=== PATIENT | female | born 1950 | race Caucasian/White ===

== ENCOUNTER 2020-03-16 05:09 | Inpatient (IN) | payer OTHER ==
[~2020-03-16] VITALS: Ht 152.4 cm; Wt 112.5 kg
--- NOTE | 2020-03-16 02:00 | NUR ---
awake, alert, watching tv. stable. no pain. no sob. Addendum: 03/17/20 at 0220 by Tim Caldwell RN wrong time entry, should be 2200
[2020-03-16 05:14] VITALS: BP_SYST 117
--- NOTE | 2020-03-16 05:14 | NUR ---
Placed in room 6 . Placed on equipment monitor phototypesetting, blood pressure machine and pulse oximeter. To gown for exam. Side rails up. Report given to Jesus JONES/Britney JONES.
--- NOTE | 2020-03-16 05:16 | NUR ---
Patient BIB EMS -[facility] C/O generalized weakness x 1 week. Per EMS reported, patient had generalized weakness x ~ 1 week, called 911 from [facility]. A/O,X4, generalized weakness, ascites, bilateral lower leg swelling, pitting edema +2, HR 70, RR 22, BP 119/76, Oxygen sat 98 %RA.
--- NOTE | 2020-03-16 05:35 | NUR ---
ER at bedside examining patient.
--- NOTE | 2020-03-16 05:58 | NUR ---
X-ray at bedside.
[2020-03-16 06:20] LABS: BASOPHILS # (AUTO) 0.1 K/uL (0.0-0.2); BASOPHILS % (AUTO) 0.5 % (0.0-2.0); EOSINOPHILS # (AUTO) 0.1 K/uL (0.0-0.4); EOSINOPHILS % (AUTO) 0.8 % (0.0-4.0); HEMATOCRIT 35.8 % (36-48); HEMOGLOBIN 11.7 g/dL (12.0-16.0); LYMPHOCYTES # (AUTO) 1.9 K/uL (1.0-5.5); LYMPHOCYTES % (AUTO) 14.2 % (20.5-51.5); MEAN CORPUSCULAR HEMOGLOBIN 28 pg (27-31); MEAN CORPUSCULAR HGB CONC 33 % (32-36); MEAN CORPUSCULAR VOLUME 86 fL (79.0-98.0); MONOCYTES # (AUTO) 1.2 K/uL (0.0-1.0); MONOCYTES % (AUTO) 8.4 % (1.7-9.3); NEUTROPHILS # (AUTO) 10.4 K/uL (1.8-7.7); NEUTROPHILS % (AUTO) 76.1 % (40.0-70.0); PLATELET COUNT (AUTO) 314 K/uL (130-430); RED BLOOD CELL COUNT(AUTO) 4.14 MIL/uL (4.2-6.2); RED CELL DISTRIBUTION WIDTH 23.9 % (9.0-15.0); WHITE BLOOD COUNT (AUTO) 13.6 K/uL (4.8-10.8)
--- NOTE | 2020-03-16 06:20 | NUR ---
# 16 FR Bernard catheter with use of sterile technique. Immediate return of 400 cc israel urine noted. Bedside drainage bag placed below level of bladder. Urine sample collected and sent to lab. Pt tolerated procedure well.
[2020-03-16 06:30] LABS: CALCIUM 7.8 mg/dL (8.4-11.0); CREATININE 1.78 mg/dL (0.55-1.30); POTASSIUM 4.2 mmol/L (3.5-5.1)
[2020-03-16 06:31] LABS: INR 1.1 (0.8-1.2); PROTHROMBIN TIME 11.1 SECS (9.5-12.5)
[2020-03-16 06:34] LABS: ALBUMIN 1.8 g/dL (3.4-4.8); TOTAL BILIRUBIN 1.6 mg/dL (0.0-1.0)
[2020-03-16 06:43] LABS: BILIRUBIN,URINE NEGATIVE (NEGATIVE); BLOOD, URINE NEGATIVE (NEGATIVE); CLARITY/URINE CLEAR (CLEAR); COLOR,URINE YELLOW (YELLOW); GLUCOSE,URINE NEGATIVE (NEGATIVE); KETONES,URINE TRACE (NEGATIVE); LEUKOCYTE ESTERASE ,URINE NEGATIVE (NEGATIVE); NITRITE, URINE NEGATIVE (NEGATIVE); PROTEIN URINE NEGATIVE (NEGATIVE); UROBILINOGEN,URINE 0.2 (0.2-1.0)
[2020-03-16] MEDS ORDERED: ONDA4VIA52 IVP (07:09)
[2020-03-16] MEDS ORDERED: INSU100I20 SQ (07:09)
[2020-03-16] MEDS ORDERED: GUAI5SYR PO (07:09)
[2020-03-16] MEDS ORDERED: METO5TAB8 PO (07:09)
[2020-03-16] MEDS ORDERED: COLL100 PO (07:09)
[2020-03-16] MEDS ORDERED: COLL30OI2 TP (07:09)
[2020-03-16] MEDS ORDERED: PRO40 PO (07:09)
[2020-03-16] MEDS ORDERED: HYDR-3917 PO (07:09)
[2020-03-16] MEDS ORDERED: IPRA3AMP9 INH (07:09)
[2020-03-16] MEDS ORDERED: SPIR50TA PO (07:09)
[2020-03-16] MEDS ORDERED: INSU100V11 SQ (07:09)
[2020-03-16] MEDS ORDERED: PROP10TA10 PO (07:09)
--- NOTE | 2020-03-16 07:15 | NUR ---
Medication reconciliation completed with information provided by [facility]. Any prior medication reconciliation on file was reviewed and corrected.
--- NOTE | 2020-03-16 07:34 | NUR ---
Report recieved from ROBERT Tan for continuation of care.
--- NOTE | 2020-03-16 07:56 | NUR ---
ADMIT NOTE Received pt from ER to the floor with a diagnosis of LIVER FAILURE. Admission process initiated. patient oriented to pain management, safety and call light-teach back done.
--- NOTE | 2020-03-16 07:58 | NUR ---
[facility] Licensed nurse present. IV present no signs or symptoms of infiltration.
[2020-03-16 08:00] VITALS: BP_SYST 114
--- NOTE | 2020-03-16 08:00 | NUR ---
Initial notes- Received patient ER came from [facility], awake and oriented. Denies any chest pain but complains of shortness of breath at times. o2 sat is 97% in room air. has wound on bilateral thigh, and left lower arm skin tear, picture taken. bilateral foot is swollen and cold to touch. Keep NPO as ordered. Oriented to environment and call light use. SR on the monitor. Will monitor.
--- NOTE | 2020-03-16 08:20 | NUR ---
MD rounds Seen by Dr. Renee at bedside.
--- NOTE | 2020-03-16 08:28 | NUR ---
CONSULTATION PAGED REASON FOR CONSULTATION:ANASARCA WAS CONSULT CALLED?Y PERSON WHO WAS NOTIFIED:NUSRAT CONSULTING PHYSICIAN:RANDA MARIE BILINGUAL SALES REPRESENTATIVE SPECIALTY:GI BILINGUAL SALES REPRESENTATIVE PHONE NUMBER:[phone] REQUESTING PHYSICIAN:NAEEM DAMIAN
--- NOTE | 2020-03-16 08:29 | NUR ---
CONSULTATION PAGED/CALLED Reason for Consultation: [] NICKI Person Who was Notified: [] BIANCA Consulting Physician: [] DR Balwinder LAU Mineral Wool Insulation Supervisor Specialty: [] GI Ordering Physician: [] DR COLOR[place]O
[2020-03-16] MEDS ORDERED: DEXTROSE 50% JECT 50 ML DISP.SYRIN IVP PRN (08:30)
[2020-03-16] MEDS ORDERED: FUROSEMIDE 40 MG/4 ML VIAL IVP ONE (08:30)
[2020-03-16] MEDS ORDERED: SPIRONOLACTONE 50 MG TABLET (ALDACTONE) PO ONE (09:00)
[2020-03-16] MEDS ORDERED: METOLAZONE 5 MG TABLET PO ONE (09:00)
[2020-03-16] MEDS ORDERED: PROPRANOLOL HCL 10 MG TABLET (INDERAL) PO ONE (09:00)
[2020-03-16] MEDS ORDERED: PANTOPRAZOLE SODIUM 40 MG TAB PO ONE (09:00)
[2020-03-16] MEDS: FUROSEMIDE 40 MG/4 ML VIAL IVP SCH (09:00)
--- NOTE | 2020-03-16 09:00 | NUR ---
rounds Seen by Dr. murcia
--- NOTE | 2020-03-16 10:30 | NUR ---
paracentesis done with 4.6 liters out.
[2020-03-16 10:37] VITALS: BP_SYST 114
[2020-03-16] MEDS: ALBUMIN HUMAN 25% 50 ML IV SCH ×3 (10:52→21:38)
--- NOTE | 2020-03-16 11:23 | NUR ---
Specimen sent to lab.
--- NOTE | 2020-03-16 11:35 | NUR ---
MARICARMEN ALU WAS CALLED, RE: DIET ORDER. SPOKE TO BIANCA
[2020-03-16 12:22] VITALS: BP_SYST 133
--- NOTE | 2020-03-16 13:35 | NUR ---
PAIN Patient complained of a headache and abdominal pain. Encouraged deep breathing. Repositioned and dimmed the lights. Patient still asked for pain med.
--- NOTE | 2020-03-16 14:07 | NUR ---
Spoke to Dr. Alcazar on the phone. Made aware that patient is in pain and is requesting to eat. Received an order for pain medication and diet.
[2020-03-16 14:28] LABS: SOURCE/TYPE ,BODY FLUID PERITONEAL
[2020-03-16 14:29] LABS: APPEARANCE,SPUN,BODY FLUID CLEAR (CLEAR); BF APPEARANCE UNSPUN CLOUDY (CLEAR); BODY FLUID COLOR LT YELLOW (LT YELLOW); BODY FLUID SOURCE/ TYPE PERITONEAL; BODY FLUID TOTAL VOLUME 4675 mL; MONOCYTES,BODY FLUID 56 %; NEUTROPHIL, BODY FLUID 44 %; RBC, BODY FLUID 163 /uL; WBC, BODY FLUID 79 /uL
[2020-03-16] MEDS: MORPHINE SULFATE 10 MG/ML VIAL IVP PRN (14:36)
[2020-03-16 15:40] LABS: BODY FLUID GLUCOSE 137 mg/dL; BODY FLUID TOTAL PROTEIN < 2.0 g/dL
[2020-03-16 16:28] VITALS: BP_SYST 93
--- NOTE | 2020-03-16 16:30 | NUR ---
ROUNDS Resting in bed. No SOB on room air. Denies any pain. Safety checks done. Call light within reach. Will continue to monitor.
--- NOTE | 2020-03-16 18:23 | NUR ---
CLOSING NOTES In bed, eating dinner well. No sign of distress. All needs met throughout shift. Safety checks done. Call light within reach. Will endorse to the night nurse.
--- NOTE | 2020-03-16 19:15 | NUR ---
initial notes: pt is awake, alert, oriented x 3, watching tv. no sign of pain, no sob, not distress. iv lock opn both forearm are intact. pt has buchanan catheter draining by gravity. talk to pt about her plan of care, pt agree and verbalized understanding. needs attended, call light in reach. safety precaution in place, bed alarm on. will monitor.
[2020-03-16 21:29] VITALS: BP_SYST 102
[2020-03-16] MEDS: PROPRANOLOL HCL 10 MG TABLET (INDERAL) PO SCH (21:38)
--- NOTE | 2020-03-16 22:00 | NUR ---
awake, alert, watching tv. stable. no pain. no sob.
--- NOTE | 2020-03-17 | NUR ---
pt is still awake, watching tv, no pain, no sob. stable. needs attended. call light in reach. will monitor.
[2020-03-17 00:06] VITALS: BP_SYST 107
[2020-03-17] MEDS: INSULIN REGULAR, HUMAN 100 UNITS/ML, 10 ML VIAL (humuLIN R) SUBCUT PRN ×5 (00:08→23:31)
--- NOTE | 2020-03-17 02:15 | NUR ---
pt is still awake, no pain, no sob, stable on monitor. needs attended. call light in reach.
[2020-03-17] MEDS: ALBUMIN HUMAN 25% 50 ML IV SCH (03:37)
--- NOTE | 2020-03-17 03:57 | NUR ---
pt is still awake, alert. pt stated that she can't stand up to be weigh in standing scale and she also afraid of falling. explained how to weigh using the bed. she verbalized understanding. needs attended. call light in reach. will monitor.
--- NOTE | 2020-03-17 06:00 | NUR ---
pt is awake, alert, no sob, not distress, daily weigh done, pt unable to stand up. clean pt and chux, needs attended. call light in reach, safety precaution in place. will monitor.
[2020-03-17 06:36] LABS: INR 1.2 (0.8-1.2); PROTHROMBIN TIME 11.7 SECS (9.5-12.5)
[2020-03-17 06:43] LABS: BASOPHILS % (AUTO) 0.3 % (0.0-2.0); EOSINOPHILS # (AUTO) 0.1 K/uL (0.0-0.4); EOSINOPHILS % (AUTO) 0.8 % (0.0-4.0); HEMATOCRIT 29.6 % (36-48); HEMOGLOBIN 9.7 g/dL (12.0-16.0); LYMPHOCYTES # (AUTO) 1.2 K/uL (1.0-5.5); MEAN CORPUSCULAR HEMOGLOBIN 28 pg (27-31); MEAN CORPUSCULAR HGB CONC 33 % (32-36); MEAN CORPUSCULAR VOLUME 86 fL (79.0-98.0); MONOCYTES # (AUTO) 0.6 K/uL (0.0-1.0); MONOCYTES % (AUTO) 7.2 % (1.7-9.3); NEUTROPHILS % (AUTO) 78.7 % (40.0-70.0); PLATELET COUNT (AUTO) 180 K/uL (130-430); RED BLOOD CELL COUNT(AUTO) 3.43 MIL/uL (4.2-6.2); WHITE BLOOD COUNT (AUTO) 8.9 K/uL (4.8-10.8)
[2020-03-17 06:55] LABS: ALBUMIN 2.3 g/dL (3.4-4.8); CALCIUM 7.7 mg/dL (8.4-11.0); CREATININE 1.53 mg/dL (0.55-1.30); POTASSIUM 3.9 mmol/L (3.5-5.1)
[2020-03-17 07:27] LABS: RED CELL DISTRIBUTION WIDTH 24.8 % (9.0-15.0)
--- NOTE | 2020-03-17 07:30 | NUR ---
closing: pt is awake, alert oriented. no pain, not distress, iv lock on both forearm intact and patent. needs attended the whole shift. call light in reach. safety precaution in place. bedside report to am rn.
--- NOTE | 2020-03-17 08:00 | NUR ---
INITIAL NOTES Patient is awake and oriented. Denies any pain at this time. No distress on room air. IV saline lock on both forearm intact. Wound dressing on bilateral anterior thigh dry and intact. Bernard catheter in place draining dark yellow urine. Encouraged patient to take more fluids. Reminded of fall and safety precautions, verbalized understanding. Call light within reach. Will continue to monitor.
[2020-03-17 08:12] VITALS: BP_SYST 110
--- NOTE | 2020-03-17 08:54 | NUR ---
Nutrition Update Seun Scale 18 noted. Pt admitted for liver failure Diet: mechanical soft BMI: 47.7 kg/m2 RD to follow per nutrition care standards.
--- NOTE | 2020-03-17 09:00 | NUR ---
MD ROUNDS Seen and examined by Dr. Renee at bedside.
[2020-03-17] MEDS: METOLAZONE 5 MG TABLET PO SCH (09:03)
[2020-03-17] MEDS: PANTOPRAZOLE SODIUM 40 MG TAB PO SCH (09:03)
[2020-03-17] MEDS: FUROSEMIDE 40 MG/4 ML VIAL IVP SCH (10:02)
[2020-03-17] MEDS: RIFAXIMIN 550 MG TABLET PO SCH ×2 (10:02→22:07)
--- NOTE | 2020-03-17 10:10 | NUR ---
PAIN Patient complained of headache and pain on her wounds. Repositioned and dimmed lights. Patient still wants her tylenol. Will medicate.
[2020-03-17] MEDS: PROPRANOLOL HCL 10 MG TABLET (INDERAL) PO SCH ×3 (10:19→22:07)
[2020-03-17] MEDS: SPIRONOLACTONE 50 MG TABLET (ALDACTONE) PO SCH (10:19)
[2020-03-17] MEDS: ACETAMINOPHEN 325 MG TABLET PO PRN ×2 (10:20→17:47)
[2020-03-17] MEDS ORDERED: LACTULOSE 20 GM/30 ML UDC PO ONE (11:15)
[2020-03-17 12:16] VITALS: BP_SYST 112
[2020-03-17] MEDS: LACTULOSE 20 GM/30 ML UDC PO SCH ×3 (13:00→22:07)
--- NOTE | 2020-03-17 13:48 | NUR ---
PT PT staff is at bedside working with the patient at this time.
--- NOTE | 2020-03-17 16:00 | NUR ---
WOUND CARE Wound care done. Patient tolerated procedure. Repositioned. Safety checks done. Call light within reach. Will continue to monitor.
[2020-03-17 16:27] VITALS: BP_SYST 108
--- NOTE | 2020-03-17 17:20 | NUR ---
PAIN Complained of headache and pain on the wounds. Will medicate.
--- NOTE | 2020-03-17 18:24 | NUR ---
CLOSING NOTES Resting in bed, eating dinner well. No sign of distress. Pain is controlled at this time per patient. All needs met throughout shift. Safety checks done. Call light within reach. Will endorse to night nurse. Addendum: 03/17/20 at 1844 by Ayanna Freeman RN IV saline locks on both forearms are intact. Bernard catheter in place, draining yellowish urine.
--- NOTE | 2020-03-17 19:30 | NUR ---
Opening Notes Patient is resting in bed at this time. No signs of distress noted. Breathing is even and unlabored. Bernard catheter is patent and draining yellow urine. Right forearm 20G and left forearm 20G are patent and saline locked. Patient does not have any needs at this time. Bed is locked in the lowest position. Call light is within reach. Safety and fall precautions are in place.
[2020-03-17 20:00] VITALS: BP_SYST 118
--- NOTE | 2020-03-17 22:15 | NUR ---
Medication Administered scheduled medications at this time. Educated patient on side effects and action. Patient verbalized an understanding. Inderal was held due to blood pressure of 98/62. Patient was repositioned at this time. Bed is locked in the lowest position. Call light is within reach. Safety and fall precautions are in place.
--- NOTE | 2020-03-17 23:45 | NUR ---
Accu check Accu check is completed at this time. Blood glucose is 176. Insulin given per sliding scale.
[2020-03-17 23:51] VITALS: BP_SYST 98
--- NOTE | 2020-03-18 01:31 | NUR ---
RN Rounds Patient is resting in bed with eyes closed. Breathing is even and unlabored. No signs of distress noted. patient was repositioned at this time. Patient does not have any other needs at this time. Bed is locked in the lowest position. Call light is within reach. Safety and fall precautions are in place.
[2020-03-18] MEDS: MORPHINE SULFATE 10 MG/ML VIAL IVP PRN (02:45)
--- NOTE | 2020-03-18 03:30 | NUR ---
RN Rounds Patient is resting in bed with eyes closed. Breathing is even and unlabored. No signs of distress noted. patient was repositioned at this time. PRN pain medication helped pain. Patient is having jerking episodes. Patient does not have any other needs at this time. Bed is locked in the lowest position. Call light is within reach. Safety and fall precautions are in place.
[2020-03-18 04:00] VITALS: BP_SYST 134
--- NOTE | 2020-03-18 05:24 | NUR ---
RN Rounds Patient is resting in bed with eyes closed. Breathing is even and unlabored. No signs of distress noted. patient was repositioned at this time. Patient does not have any other needs at this time. Bed is locked in the lowest position. Call light is within reach. Safety and fall precautions are in place. Addendum: 03/18/20 at 0534 by Rowena Hooker RN patient has complaints of abdominal cramping/spasms.
--- NOTE | 2020-03-18 05:34 | NUR ---
MD Called Dr. Cummins was called and updated on patient's current status. New orders given. RN to input orders. MD okayed to give morphine 2mg now.
[2020-03-18] MEDS ORDERED: MILK OF MAGNESIA 30 ML UDC PO ONE (05:45)
[2020-03-18] MEDS ORDERED: MORPHINE 2 MG/ML INJ. SYRINGE IVP ONE (05:45)
[2020-03-18] MEDS: INSULIN REGULAR, HUMAN 100 UNITS/ML, 10 ML VIAL (humuLIN R) SUBCUT PRN ×2 (05:58→18:30)
--- NOTE | 2020-03-18 06:02 | NUR ---
Accu check Accu check is completed at this time. Blood glucose is 152. Insulin given per sliding scale.
--- NOTE | 2020-03-18 06:59 | NUR ---
Closing Notes Patient is resting in bed at this time. No signs of distress noted. Breathing is even and unlabored. Patient is on room air and tolerating well. Bernard catheter is patent and draining yellow urine. Right forearm 20G and left forearm 20G are patent and saline locked. All needs met throughout shift. Bed is locked in the lowest position. Call light is within reach. Safety and fall precautions are in place. Will endorse care to dayshift RN
[2020-03-18 07:21] LABS: ALBUMIN 2.1 g/dL (3.4-4.8); CALCIUM 7.8 mg/dL (8.4-11.0); CREATININE 1.53 mg/dL (0.55-1.30); POTASSIUM 3.9 mmol/L (3.5-5.1); TOTAL BILIRUBIN 1.9 mg/dL (0.0-1.0)
[2020-03-18 07:29] LABS: BASOPHILS % (AUTO) 0.2 % (0.0-2.0); EOSINOPHILS # (AUTO) 0.2 K/uL (0.0-0.4); EOSINOPHILS % (AUTO) 1.7 % (0.0-4.0); HEMATOCRIT 32.9 % (36-48); HEMOGLOBIN 10.8 g/dL (12.0-16.0); LYMPHOCYTES # (AUTO) 1.5 K/uL (1.0-5.5); LYMPHOCYTES % (AUTO) 12.8 % (20.5-51.5); MEAN CORPUSCULAR HEMOGLOBIN 28 pg (27-31); MEAN CORPUSCULAR HGB CONC 33 % (32-36); MEAN CORPUSCULAR VOLUME 85 fL (79.0-98.0); MONOCYTES # (AUTO) 0.9 K/uL (0.0-1.0); MONOCYTES % (AUTO) 7.9 % (1.7-9.3); NEUTROPHILS # (AUTO) 8.8 K/uL (1.8-7.7); NEUTROPHILS % (AUTO) 77.4 % (40.0-70.0); PLATELET COUNT (AUTO) 245 K/uL (130-430); RED BLOOD CELL COUNT(AUTO) 3.86 MIL/uL (4.2-6.2); WHITE BLOOD COUNT (AUTO) 11.4 K/uL (4.8-10.8)
[2020-03-18 07:46] LABS: RED CELL DISTRIBUTION WIDTH 24.9 % (9.0-15.0)
[2020-03-18 08:00] VITALS: BP_SYST 133
[2020-03-18] MEDS: FUROSEMIDE 40 MG/4 ML VIAL IVP SCH (08:46)
[2020-03-18] MEDS: PANTOPRAZOLE SODIUM 40 MG TAB PO SCH (08:48)
[2020-03-18] MEDS: METOLAZONE 5 MG TABLET PO SCH (08:48)
[2020-03-18] MEDS: SPIRONOLACTONE 50 MG TABLET (ALDACTONE) PO SCH (08:48)
[2020-03-18] MEDS: PROPRANOLOL HCL 10 MG TABLET (INDERAL) PO SCH ×2 (08:48→20:30)
[2020-03-18] MEDS: RIFAXIMIN 550 MG TABLET PO SCH ×2 (08:48→20:30)
[2020-03-18] MEDS: LACTULOSE 20 GM/30 ML UDC PO SCH ×2 (09:41→20:29)
--- NOTE | 2020-03-18 11:33 | NUR ---
Patient A&O x3-4. Patient reports discomfort and that she has to have a bowel movement. Patient denies pain at the moment. AM medications given. Doctor came by to visit patient and increased the dose for medication to promote bowel movement. Bed in lowest position. Call light in reach. Will continue to monitor patient throughout shift.
[2020-03-18 12:20] VITALS: BP_SYST 127
--- NOTE | 2020-03-18 12:21 | NUR ---
Patient refusing blood sugar check and lunch.
--- NOTE | 2020-03-18 14:37 | NUR ---
Patient finally had a BM. Resting in bed. Bed in low position. Call light in reach. Will continue to monitor patient throughout shift.
--- NOTE | 2020-03-18 15:52 | NUR ---
Dietitian Recommendations *Continue Mechanical Soft diet *Snacks BID *Encourage PO intake as tolerated Please see Nutrition Assessment for further details. LT, RD
[2020-03-18 16:12] VITALS: BP_SYST 113
--- NOTE | 2020-03-18 16:54 | NUR ---
Wound care complete.
[2020-03-18 20:00] VITALS: BP_SYST 128
--- NOTE | 2020-03-18 20:30 | NUR ---
Medication Administered scheduled and PRN Tylenol medications at this time. Patient has complaints of 5/10 to head. Educated patient on side effects and action. Patient verbalized an understanding. Patient tolerated administration well. Patient was repositioned at this time. Bed is locked in the lowest position. Call light is within reach. Safety and fall precautions are in place.
[2020-03-18] MEDS: ACETAMINOPHEN 325 MG TABLET PO PRN (20:37)
--- NOTE | 2020-03-18 22:41 | NUR ---
RN Rounds Patient is resting in bed with eyes closed. Breathing is even and unlabored. No signs of distress noted. patient was repositioned at this time. PRN pain medication helped pain. Patient does not have any other needs at this time. Bed is locked in the lowest position. Call light is within reach. Safety and fall precautions are in place.
[2020-03-18 23:34] VITALS: BP_SYST 118
[2020-03-19] MEDS: INSULIN REGULAR, HUMAN 100 UNITS/ML, 10 ML VIAL (humuLIN R) SUBCUT PRN ×3 (00:30→16:55)
--- NOTE | 2020-03-19 00:48 | NUR ---
RN Rounds/ Accu Check Patient is resting in bed with eyes closed. Breathing is even and unlabored. No signs of distress noted. Accu check completed at this time, blood glucose was 182. Insulin given per sliding scale. patient was repositioned at this time. Patient does not have any other needs at this time. Bed is locked in the lowest position. Call light is within reach. Safety and fall precautions are in place.
[2020-03-19] MEDS ORDERED: ONDANSETRON HCL 4 MG/2 ML VIAL IVP ONE (02:30)
--- NOTE | 2020-03-19 02:30 | NUR ---
RN Rounds/ Medications Patient is resting in bed with eyes closed. Breathing is even and unlabored, no signs of distress noted. Patient has complaints of nausea, Dr. Cummins called and new orders given for Zofran. RN to input. Administered PRN Tylenol and zofran. Patient tolerated well. Educated patient on action and side effects. Patient verbalized an understanding. IV is patent and infusing medications. No other needs at this time. Bed is locked in the lowest position with call light in reach. Safety precautions in place.
[2020-03-19] MEDS: ACETAMINOPHEN 325 MG TABLET PO PRN ×3 (02:44→22:00)
--- NOTE | 2020-03-19 04:11 | NUR ---
RN Rounds Patient is resting in bed with eyes closed. Breathing is even and unlabored. No signs of distress noted. patient was repositioned and cleaned at this time. PRN pain and nausea medication was effective. Patient does not have any other needs at this time. Bed is locked in the lowest position. Call light is within reach. Safety and fall precautions are in place.
--- NOTE | 2020-03-19 06:34 | NUR ---
Closing Notes Patient is resting in bed at this time. No signs of distress noted. Breathing is even and unlabored. Patient is on room air and tolerating well. Accu check was completed at this time, blood glucose was 193. Insulin given per sliding scale. Bernard catheter is patent and draining dark yellow urine. Right forearm 20G and left forearm 20G are patent and saline locked. All needs met throughout shift. Bed is locked in the lowest position. Call light is within reach. Safety and fall precautions are in place. Will endorse care to dayshift RN
[2020-03-19 07:36] VITALS: BP_SYST 125
--- NOTE | 2020-03-19 08:00 | NUR ---
INITIAL NOTES Resting in bed, oriented to name and place only. No SOB on room air. Denies any pain at this time. IV saline lock on both forearms intact. Bernard catheter in place, draining yellowish urine. Repositioned. Feels nauseated and weak at this time. Dressing on both anterior thighs dry and intact. Fall and safety checks done. Will continue to monitor.
--- NOTE | 2020-03-19 08:30 | NUR ---
EMESIS Vomited about 200 ml greenish fluid. Burdett relief after. Reported to Dr. Renee, said he will order zofran for the patient.
[2020-03-19] MEDS ORDERED: BISACODYL 10 MG/SUPPOSITORY RC ONE (08:45)
[2020-03-19] MEDS: RIFAXIMIN 550 MG TABLET PO SCH ×2 (08:48→21:51)
[2020-03-19] MEDS: LACTULOSE 20 GM/30 ML UDC PO SCH ×5 (08:48→21:00)
[2020-03-19] MEDS: PROPRANOLOL HCL 10 MG TABLET (INDERAL) PO SCH ×2 (08:50→21:54)
[2020-03-19] MEDS: METOLAZONE 5 MG TABLET PO SCH (08:51)
[2020-03-19] MEDS: SPIRONOLACTONE 50 MG TABLET (ALDACTONE) PO SCH (08:51)
[2020-03-19] MEDS: PANTOPRAZOLE SODIUM 40 MG TAB PO SCH (08:51)
[2020-03-19] MEDS: FUROSEMIDE 40 MG/4 ML VIAL IVP SCH (08:52)
--- NOTE | 2020-03-19 09:41 | NUR ---
P.T. NOTES PATIENT REFUSED P.T. AT THIS TIME, STATES NOT FEELING WELL, NAUSEA AND VOMMITTING EARLIER THIS MORNING, WILL ATTEMPT AGAIN LATER, RN AWARE.
[2020-03-19] MEDS: ONDANSETRON HCL 4 MG/2 ML VIAL IVP PRN ×3 (10:49→21:54)
--- NOTE | 2020-03-19 10:50 | NUR ---
EMESIS Vomited another 200 ml greenish fluid. Medicated with Zofran. Informed Dr. Alcazar of emetic episodes.
[2020-03-19] MEDS: DOCUSATE SODIUM 100 MG CAPSULE PO SCH (11:03)
--- NOTE | 2020-03-19 11:45 | NUR ---
P.T. NOTES AFTER MULTIPLE ATTEMPTS PATIENT CONTINUES TO REFUSE P.T. AT THIS TIME, STATES STILL VOMITTING AND FEELS NAUSEOUS, RN AWARE.
--- NOTE | 2020-03-19 12:10 | NUR ---
Patient is starting to refuse to take her Enulose because of the taste. She said it is making her more nauseous. Mixed it with orange juice and patient was able to take it. Safety checks done. Will continue to monitor.
[2020-03-19 12:12] VITALS: BP_SYST 127
--- NOTE | 2020-03-19 14:50 | NUR ---
EMESIS About 150ml of greenish fluid vomited. Oral care provided. Will medicate. Fall and safety checks done. Will continue to monitor.
[2020-03-19] MEDS ORDERED: SODIUM PHOSPHATE,MONO-DIBASIC 133 ML ENEMA RC ONE (15:45)
--- NOTE | 2020-03-19 15:45 | NUR ---
WOUND EVALUATION: Wound Consult received from Dr. Alcazar. Thank you, Dr. Alcazar, for the consult. Patient received in a [place] Bed with an IsoFlex SUSANNE low air-loss mattress, awake, alert, confused. Patient is unable to turn in bed independently. Seun Score is an 11. 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 Recent Labs: WBC 11.4, RBC 3.86, hemoglobin 10.8, hematocrit 32.9, BUN 58, creatinine 1.53, GFR 36, glucose 172, calcium 7.8, alkaline phosphatase 362, albumin 2.1. Microbiology: Blood culture results x2 in progress. MRSA screen results negative. Urine culture results positive for yeast. Intrinsic factors that delay wound healing: Diabetes Mellitus, Hypoalbuminemia. Extrinsic factors that delay wound healing: Decreased mobility. Wound Assessment: 1. Left Proximal Anterior Thigh: Ulceration from severe Intertriginous Dermatitis, present on admission. Wound bed has 80% yellow slough,10% black slough, 10% red tissue. No odor, small yellow purulent drainage. Periwound intact, erythematous. Wound measures 9.5 cm x 10.0 cm. 2. Right Proximal Anterior Thigh: Ulceration from severe Intertriginous Dermatitis, present on admission. Wound bed has 90% black eschar, 10% yellow slough. No odor, small yellow purulent drainage. Periwound intact, erythematous. Wound measures 7.5 cm x 13.7 cm. Recommend: Cleanse wounds with normal saline. Apply moisture barrier cream to gopal-wounds. Cover with non-adhesive foam dressings. Secure with transparent dressings. Perform wound care daily, and as needed for dressing soiling or dislodgement. Also recommend: Encourage and assist patient with repositioning every 2 hours with pillow support and off-load pressure areas with pillows for pressure re-distribution. Offload, elevate and float bilateral heels with pillows. Perform skin care and monitor skin integrity Q shift. Use moisture barrier cream on buttocks and other moisture susceptible areas QID and as needed for soiling. Initiate low air-loss therapy.
--- NOTE | 2020-03-19 15:48 | NUR ---
Patient has low urine output, less than 100 ml and no bowel movement. Paged and spoke to Dr. Renee and made aware. Received new orders.
[2020-03-19 16:43] VITALS: BP_SYST 121
[2020-03-19] MEDS: BALSAM PERU/CASTOR OIL 60 GM OINT...G. TP SCH (16:54)
--- NOTE | 2020-03-19 17:14 | NUR ---
ROUNDS Asleep at this time, allowed to rest. Safety checks done. Will monitor.
--- NOTE | 2020-03-19 18:25 | NUR ---
CLOSING NOTES Resting in bed. Denies any pain but is nauseous. Refused to eat dinner. Still no bowel movement. Urine output of only 100ml from Bernard catheter. Requested to have the fleet enema tonight because she said she feels weak right now. IV saline locks on both forearms intact. Repositioned. Safety checks done. Call light within reach. Will endorse to night nurse.
[2020-03-19 20:05] VITALS: BP_SYST 101
--- NOTE | 2020-03-19 20:05 | NUR ---
Opening notes Pt awake oriented x3, VSS, afebrile. No s/s distress noted. Pt has N/V noted 50ml dark green emesis in bag. IVL jonathan arms clear and patent. Bernard catheter draining israel urine. Jonathan thighs dressing clean and intact. Call light within reach. Bed low, locked, siderails up x3, alarm on. To monitor.
[2020-03-20] MEDS: LACTULOSE 20 GM/30 ML UDC PO SCH ×8 (00:06→21:29)
[2020-03-20] MEDS: INSULIN REGULAR, HUMAN 100 UNITS/ML, 10 ML VIAL (humuLIN R) SUBCUT PRN ×2 (00:11→12:37)
[2020-03-20 00:12] VITALS: BP_SYST 139
--- NOTE | 2020-03-20 00:35 | NUR ---
Enema Pt positioned on her left side w/ COMPLIANCE TECHNICIAN assist. Enema administered. Will re check pt.
--- NOTE | 2020-03-20 01:05 | NUR ---
Bowel movement Pt had several formed brown stools and passing gas after fleet enema administered. Pt states she feels much better. Pericare and skin care provided. Z-guard applied to sacral redness. Bernard catheter intact and secured. Jonathan thigh dressing dry and intact. Pt repositioned. Call light within reach. To monitor.
--- NOTE | 2020-03-20 06:35 | NUR ---
Closing notes Pt asleep, easily awakens, no s/s distress noted. BS checked 137, no insulin indicated. Pt states she feels better. Pt still refuses the Lactulose, states " it will make me throw up". Explained to pt indication, risk and benefit. IV locks jonathan arms clear and patent. Jonathan thigh dressings clean and intact. CAll light within reach. SAfety maintianed. To endorse to AM nurse.
[2020-03-20 06:37] LABS: ALBUMIN 1.7 g/dL (3.4-4.8); CALCIUM 7.8 mg/dL (8.4-11.0); CREATININE 2.35 mg/dL (0.55-1.30); POTASSIUM 4.6 mmol/L (3.5-5.1)
[2020-03-20 06:57] LABS: BASOPHILS % (AUTO) 0.2 % (0.0-2.0); EOSINOPHILS % (AUTO) 0.1 % (0.0-4.0); HEMATOCRIT 36.4 % (36-48); LYMPHOCYTES # (AUTO) 1.8 K/uL (1.0-5.5); LYMPHOCYTES % (AUTO) 10.9 % (20.5-51.5); MEAN CORPUSCULAR HEMOGLOBIN 28 pg (27-31); MEAN CORPUSCULAR HGB CONC 33 % (32-36); MEAN CORPUSCULAR VOLUME 86 fL (79.0-98.0); MONOCYTES % (AUTO) 5.8 % (1.7-9.3); NEUTROPHILS # (AUTO) 13.6 K/uL (1.8-7.7); PLATELET COUNT (AUTO) 327 K/uL (130-430); RED BLOOD CELL COUNT(AUTO) 4.26 MIL/uL (4.2-6.2); RED CELL DISTRIBUTION WIDTH 25.3 % (9.0-15.0); WHITE BLOOD COUNT (AUTO) 16.5 K/uL (4.8-10.8)
[2020-03-20 08:00] VITALS: BP_SYST 93
--- NOTE | 2020-03-20 08:00 | NUR ---
ASSUMPTION OF CARE: RECEIVED PT A/A/OX4, DX: IMBALANCED NUTRITION: LESS THAN BODY WEIGHT, R/T LIVER FAILURE, VSS, AFEBRILE, NO S/S OF DISTRESS, REFUSING BREAKFAST MEAL, STATING "I JUST DON'T HAVE AN APPETITE THIS MORNING, EVERYTHING IS MAKING ME NAUSEOUS", ZOFRAN MEDICATION OFFERED TO PT, PT DECLINED TO TAKE IT AT THIS TIME, BREATH SOUNDS ARE CLEAR, BREATHING UNLABORED, IV SITE INTACT, PATENT, NO REDNESS OR SWELLING, ORIENTED TO UNIT, CALL LIGHT AND PERSONAL EFFECTS PLACED WITHIN REACH, WILL CONT' TO MONITOR AND ASSESS.
--- NOTE | 2020-03-20 08:05 | NUR ---
VISIT: AT BEDSIDE FOR ASSESSMENT OF PT, DISCUSSED POC, PT VERBALIZES UNDERSTANDING, NEW ORDERS GIVEN, WILL CONT' WITH POC.
[2020-03-20] MEDS: DOCUSATE SODIUM 100 MG CAPSULE PO SCH (08:24)
[2020-03-20] MEDS: PANTOPRAZOLE SODIUM 40 MG TAB PO SCH (08:25)
[2020-03-20] MEDS: SPIRONOLACTONE 50 MG TABLET (ALDACTONE) PO SCH (08:25)
[2020-03-20] MEDS: RIFAXIMIN 550 MG TABLET PO SCH ×2 (08:25→21:29)
[2020-03-20] MEDS: PROPRANOLOL HCL 10 MG TABLET (INDERAL) PO SCH ×2 (08:27→21:30)
[2020-03-20] MEDS: FUROSEMIDE 40 MG/4 ML VIAL IVP SCH (08:29)
[2020-03-20] MEDS: METOLAZONE 5 MG TABLET PO SCH (08:34)
--- NOTE | 2020-03-20 08:45 | NUR ---
VISIT: AT BEDSIDE FOR ASSESSMENT OF PT, DISCUSSED POC, PT VERBALIZES UNDERSTANDING, NEW ORDERS GIVEN, WILL CONT' WITH POC.
--- NOTE | 2020-03-20 10:55 | NUR ---
VISIT: AT BEDSIDE FOR ASSESSMENT OF PT, DISCUSSED POC, PT VERBALIZES UNDERSTANDING, NEW ORDERS GIVEN, WILL CONT' WITH POC.
--- NOTE | 2020-03-20 11:03 | NUR ---
CONSULTATION PAGED/CALLED Reason for Consultation: RENAL FAILURE Person Who was Notified: INDY Consulting Physician: Irrigation Supervisor Specialty: Ordering Physician:
[2020-03-20] MEDS: ALBUMIN HUMAN 25% 50 ML IV SCH ×3 (12:32→16:03)
[2020-03-20] MEDS: BALSAM PERU/CASTOR OIL 60 GM OINT...G. TP SCH (12:41)
--- NOTE | 2020-03-20 13:48 | NUR ---
PATIENT RESTING: Patient resting quietly. No acute distress noted.
[2020-03-20 14:51] VITALS: BP_SYST 114
--- NOTE | 2020-03-20 15:35 | NUR ---
Endorsement Report received for continuation of care. Patient resting and in no signs of distress. Patient able to answer questions. Safety precautions enforced.
[2020-03-20] MEDS: MORPHINE SULFATE 10 MG/ML VIAL IVP PRN (16:04)
--- NOTE | 2020-03-20 18:37 | NUR ---
D/C Patient Patient given medication reconciliation form and D/C instructions. Exit Care provided. Patient verbalized understanding. MD discussed with patient the results and treatment provided. Ambulatory with steady gait for discharge to home. Patient in stable condition, ID band removed. Patient educated on pain management. All belongings sent with patient. Patient being transported by EMT. Addendum: 03/20/20 at 1838 by Chapis Robles RN Wrong patient.
--- NOTE | 2020-03-20 19:15 | NUR ---
Closing Notes Patient endorsed to shift production supervisor RN. No signs of distress noted.
[2020-03-20 20:37] VITALS: BP_SYST 115
--- NOTE | 2020-03-20 22:15 | NUR ---
Patient is awake soft spoken call wells given to patient due medications given sips of water tolerated .
[2020-03-20 23:51] VITALS: BP_SYST 115
--- NOTE | 2020-03-21 | NUR ---
LACTULOSE 30 ML PO sips encouraged kept upright position chest movement shallow also symmetrical .
[2020-03-21] MEDS: LACTULOSE 20 GM/30 ML UDC PO SCH ×8 (01:27→22:03)
[2020-03-21] MEDS: INSULIN REGULAR, HUMAN 100 UNITS/ML, 10 ML VIAL (humuLIN R) SUBCUT PRN ×4 (01:28→17:08)
--- NOTE | 2020-03-21 02:52 | NUR ---
Turning off loading RE POSITION ON TWO Hour schedule kept clean & dry as needed loose stool noted no SOB HOB kept elevated procedures explained .
--- NOTE | 2020-03-21 02:58 | NUR ---
HOURLY ROUNDING Patient Resting chest movement shallow also symmetrical comfort measures implemented pillows used for off loading .
[2020-03-21 05:52] LABS: INR 1.3 (0.8-1.2); PROTHROMBIN TIME 12.7 SECS (9.5-12.5)
[2020-03-21 06:29] LABS: ALBUMIN 1.9 g/dL (3.4-4.8); CALCIUM 7.4 mg/dL (8.4-11.0); CREATININE 2.6 mg/dL (0.55-1.30); POTASSIUM 4.2 mmol/L (3.5-5.1); TOTAL BILIRUBIN 2.3 mg/dL (0.0-1.0)
[2020-03-21 06:30] LABS: BASOPHILS % (AUTO) 0.2 % (0.0-2.0); EOSINOPHILS % (AUTO) 0.3 % (0.0-4.0); HEMATOCRIT 32.1 % (36-48); HEMOGLOBIN 10.5 g/dL (12.0-16.0); LYMPHOCYTES # (AUTO) 1.3 K/uL (1.0-5.5); MEAN CORPUSCULAR HEMOGLOBIN 28 pg (27-31); MEAN CORPUSCULAR HGB CONC 33 % (32-36); MEAN CORPUSCULAR VOLUME 86 fL (79.0-98.0); MONOCYTES # (AUTO) 0.7 K/uL (0.0-1.0); NEUTROPHILS # (AUTO) 9.5 K/uL (1.8-7.7); NEUTROPHILS % (AUTO) 82.5 % (40.0-70.0); PLATELET COUNT (AUTO) 224 K/uL (130-430); RED BLOOD CELL COUNT(AUTO) 3.74 MIL/uL (4.2-6.2); RED CELL DISTRIBUTION WIDTH 25.5 % (9.0-15.0)
--- NOTE | 2020-03-21 06:42 | NUR ---
WOUND CARE implemented / done to both left & Right Thigh areas , open skin as ordered patient tolerated .
[2020-03-21 06:46] LABS: WHITE BLOOD COUNT (AUTO) 11.5 K/uL (4.8-10.8)
--- NOTE | 2020-03-21 07:30 | NUR ---
OPENING NOTES: RECEIVED PATIENT FROM CHARTER BOAT OPERATOR NURSE. PATIENT IS ASLEEP LAYING DOWN IN BED. PATIENT IS TOLERATING OXYGEN ON ROOM AIR WITH NO SIGNS OF DISTRESS OR SHORTNESS OF BREATH NOTED. IV SITE IS PATENT WITH NO SIGNS OF INFILTRATION NOTED. PACE CATHETER INTACT AND DRAINING BY GRAVITY. PATIENT IN STABLE CONDITION. SAFETY, FALL AND ASPIRATION PRECAUTIONS ARE IN PLACE. BED LOCKED IN LOWEST POSITION WITH CALL LIGHT IN REACH. WILL CONTINUE TO MONITOR PATIENT FOR ANY CHANGES.
--- NOTE | 2020-03-21 07:40 | NUR ---
MD ROUNDS: DR. BIRD MAKING HIS ROUNDS. AWARE OF PATIENT'S CONDITION. NEW ORDERS GIVEN.
[2020-03-21 08:01] VITALS: BP_SYST 112
--- NOTE | 2020-03-21 08:45 | NUR ---
MD ROUNDS: DR. LAU MAKING HIS ROUNDS. AWARE OF PATIENT'S CONDITION. NO NEW ORDERS GIVEN.
[2020-03-21] MEDS: BALSAM PERU/CASTOR OIL 60 GM OINT...G. TP SCH (08:54)
[2020-03-21] MEDS: NACL 0.9% 1,000 ML IV SCH (08:54)
[2020-03-21] MEDS: METOLAZONE 5 MG TABLET PO SCH (08:55)
[2020-03-21] MEDS: DOCUSATE SODIUM 100 MG CAPSULE PO SCH (08:55)
[2020-03-21] MEDS: RIFAXIMIN 550 MG TABLET PO SCH ×2 (08:55→22:03)
[2020-03-21] MEDS: PANTOPRAZOLE SODIUM 40 MG TAB PO SCH (08:55)
[2020-03-21] MEDS: PROPRANOLOL HCL 10 MG TABLET (INDERAL) PO SCH ×2 (08:56→22:03)
--- NOTE | 2020-03-21 09:37 | NUR ---
MD ROUNDS: DR. GRAY MAKING HIS ROUNDS. AWARE OF PATIENT'S CONDITION. NEW ORDERS GIVEN.
--- NOTE | 2020-03-21 10:09 | NUR ---
RN ROUNDS: PATIENT IS ASLEEP LAYING DOWN IN BED. PATIENT ON ROOM AIR WITH NO SIGNS OF DISTRESS OR SHORTNESS OF BREATH NOTED. IV SITE IS PATENT WITH NO SIGNS OF INFILTRATION NOTED AND RUNNING FLUIDS ORDERED. PATIENT IN STABLE CONDITION. WILL CONTINUE TO MONITOR PATIENT FOR ANY CHANGES.
--- NOTE | 2020-03-21 10:28 | NUR ---
MD ROUNDS: DR. COLORADO MAKING HIS ROUNDS. AWARE OF PATIENT'S CONDITION. NEW ORDERS GIVEN.
--- NOTE | 2020-03-21 10:30 | NUR ---
WOUND CARE/PICTURES: WOUND CARE PERFORMED ON PATIENT AND PICTURES TAKEN. PATIENT TOLERATED IT WELL.
--- NOTE | 2020-03-21 12:07 | NUR ---
RN ROUNDS: PATIENT IS AWAKE AND ALERT x1 WATCHING TELEVISION. PATIENT IS LETHARGIC. PATIENT DENIES ANY PAIN AT THE MOMENT. IV SITE IS PATENT WITH NO SIGNS OF INFILTRATION NOTED. PATIENT IS TOLERATING OXYGEN ON ROOM AIR WITH NO SIGNS OF DISTRESS OR SHORTNESS OF BREATH NOTED. PATIENT IN STABLE CONDITION. WILL CONTINUE TO MONITOR PATIENT FOR ANY CHANGES.
[2020-03-21 12:36] VITALS: BP_SYST 116
[2020-03-21 13:30] LABS: BILIRUBIN,URINE 1+ (NEGATIVE); BLOOD, URINE 3+ (NEGATIVE); CLARITY/URINE TURBID (CLEAR); COLOR,URINE YELLOW (YELLOW); GLUCOSE,URINE NEGATIVE (NEGATIVE); KETONES,URINE TRACE (NEGATIVE); LEUKOCYTE ESTERASE ,URINE 3+ (NEGATIVE); NITRITE, URINE NEGATIVE (NEGATIVE); PROTEIN URINE 1+ (NEGATIVE)
--- NOTE | 2020-03-21 14:20 | NUR ---
RN ROUNDS: PATIENT IS ASLEEP LAYING DOWN IN BED. PATIENT IS TOLERATING OXYGEN ON ROOM AIR WITH NO SIGNS OF DISTRESS OR SHORTNESS OF BREATH NOTED. IV SITE IS PATENT WITH NO SIGNS OF INFILTRATION NOTED. PATIENT IN STABLE CONDITION. WILL CONTINUE TO MONITOR PATIENT FOR ANY CHANGES.
[2020-03-21 14:31] LABS: BACTERIA,URINE MODERATE /HPF (None Seen); MUCUS,URINE 1+ /LPF (None Seen); RBC,URINE 20-50 /HPF (0-3); WBC,URINE >100 /HPF (0-3)
--- NOTE | 2020-03-21 16:07 | NUR ---
RN ROUNDS: PATIENT IS ASLEEP IN BED. PATIENT IS TOLERATING OXYGEN ON ROOM AIR WITH NO SIGNS OF DISTRESS OR SHORTNESS OF BREATH NOTED. PATIENT IN STABLE CONDITION. WILL CONTINUE TO MONITOR PATIENT FOR ANY CHANGES.
--- NOTE | 2020-03-21 16:17 | NUR ---
Nutrition F/U RD reviewed pt's current EMR record including diet Hx, physician notes, nursing notes, pertinent labs/meds/procedures, care trends, and care activity. Admission Dx: Liver Failure PMH: nonalcoholic cirrhosis, DM, HTN per physician notes. 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 Pt is s/p paracentesis on 03/16 with 4L removed per EMR. Current Diet Order/Nutrition Support: Mechanical soft x5 days Subjective Info: Per EMR, pt is alert/oriented x1. RD spoke w/ pt's primary RN via phone call who reported that pt has a poor appetite and did not eat much today. She noted that pt only ate half of pudding w/ meds earlier today. [facility] per physician orders. Pt is not meeting nutritional needs. Wt fluctuations persist -- new wt documented: 257#/117 kg (03/21/20) -- +9# within past 3 days -- likely d/t fluid shifts associated w/ Hx of compromised liver function. ONS is not appropriate d/t possible need for fluid restriction a/w Hx of renal Dz. Pertinent Medications: colace, lactulose, zofran, SSI Pertinent Labs: BUN 75 H, CRE 2.6 H, eGFR 19 L, POC BG 175 H, BG 161 H, ALP 230 H, Tbili 2.3 H, WBC 11.5 H, H/H 10.5 L/32.1 L Skin Integrity Comment: Seun Score: 14; Non Destructive Evaluation Technician note 03/19/20 reviewed; per nursing notes, edema noted to bilateral foot: 2+ pitting/bilateral le+ pitting Current % PO: 5% average x2 meals -- negligible Estimated Energy Expenditure (kcals/day) 1550-1860kcal/day (25-30kcal/kg based on AdjBW for Chronic Dz/obesity) Estimated Protein Required (g/day) 50-93g/day (0.8-1.5/kg based on AdjBW for Chronic Dz) Estimated Fluid Required (l/day) Deferred to MD d/t Chronic Renal Dz Problem/Etiology/Signs/Symptoms Inadequate protein energy intake related estimated nutrition requirements as evidenced by PO intake not meeting nutrition needs *ongoing Expected Outcomes/Goals Monitor appetite and PO intakes w/ goal of pt meeting at least 50% of estimated nutritional needs, labs trending WNL, normal GI function, and skin integrity/wt maintenance Dietitian Recommendations * Recommend continuing mechanical soft diet * Recommend continuing snacks BID * Encourage PO intake as tolerated Follow Up High Risk: F/U in 2-3 days
--- NOTE | 2020-03-21 16:27 | NUR ---
Dietitian Recommendations * Recommend continuing mechanical soft diet * Recommend continuing snacks BID * Encourage PO intake as tolerated LP, RD Please refer to Nutrition F/U for details.
[2020-03-21 16:49] VITALS: BP_SYST 121
--- NOTE | 2020-03-21 18:52 | NUR ---
CLOSING NOTES: PATIENT IS ASLEEP LAYING DOWN IN BED. PATIENT IS TOLERATING OXYGEN ON ROOM AIR WITH NO SIGNS OF DISTRESS OR SHORTNESS OF BREATH NOTED. IV SITE IS PATENT WITH NO SIGNS OF INFILTRATION NOTED. PACE CATHETER INTACT AND DRAINING BY GRAVITY. PATIENT IN STABLE CONDITION. SAFETY, FALL AND ASPIRATION PRECAUTIONS REMAINED IN PLACE THROUGHOUT THE SHIFT. BED LOCKED IN LOWEST POSITION WITH CALL LIGHT IN REACH. WILL ENDORSE PATIENT CARE TO ONCOMING SODA FOUNTAIN CLERK NURSE.
--- NOTE | 2020-03-21 19:30 | NUR ---
Opening Notes Patient is resting in bed at this time, patient is awake and cannot hold conversation, will answer yes or no. No signs of distress noted. Breathing is even and unlabored. Bernard catheter is patent and draining dark yellow urine. Right forearm 20G is patent and infusing and left forearm 20G is patent and saline locked. Patient does not have any needs at this time. Bed is locked in the lowest position. Call light is within reach. Safety and fall precautions are in place.
[2020-03-21 20:00] VITALS: BP_SYST 142
--- NOTE | 2020-03-21 22:00 | NUR ---
Medication Administered scheduled medications at this time. Educated patient on side effects and action. Crushed medications, patient tolerated without issue. Patient was repositioned and cleaned at this time, bowel movement X1. Bed is locked in the lowest position. Call light is within reach. Safety and fall precautions are in place.
[2020-03-21] MEDS: ONDANSETRON HCL 4 MG/2 ML VIAL IVP PRN (23:05)
[2020-03-21] MEDS: MORPHINE SULFATE 10 MG/ML VIAL IVP PRN (23:05)
[2020-03-21 23:42] VITALS: BP_SYST 103
[2020-03-22] MEDS: INSULIN REGULAR, HUMAN 100 UNITS/ML, 10 ML VIAL (humuLIN R) SUBCUT PRN ×2 (00:02→12:30)
--- NOTE | 2020-03-22 00:05 | NUR ---
RN Rounds/ Accu check patient resting in bed with eyes closed. breathing is even and unlabored. no signs of distress noted. Accu check completed, BG 154. no insulin coverage needed. Bed is locked in the lowest position. Call light within reach. Side rails up X3. fall and safety precautions in place
--- NOTE | 2020-03-22 01:00 | NUR ---
Medication Attempted to give patient lactulose. Patient is too lethargic to administer safely. Patient has obtunded demeanor, does not respond to painful stimuli at this time. Cannot make eye contact, dazing off. Will attempt to try next dose.
[2020-03-22] MEDS: LACTULOSE 20 GM/30 ML UDC PO SCH ×3 (01:26→03:00)
[2020-03-22 01:41] VITALS: BP_SYST 136
--- NOTE | 2020-03-22 03:35 | NUR ---
Medication No change in demeanor from patient. Unable to administer lactulose. Will page MD to update on current condition, and possible new orders. Will continue to monitor patient. Breathing is even and unlabored. No signs of distress noted.
[2020-03-22] MEDS ORDERED: LACTULOSE 20 GM/30 ML UDC RC SCH ×2 (04:00→06:00)
--- NOTE | 2020-03-22 04:00 | NUR ---
Called Dr. Cummins called and orders were given for lactulose rectally. RN verified orders and to input. does not want NG tube due to esophageal varices. OK to insert rectal tube for admin. Addendum: 03/22/20 at 0638 by Rowena Hooker RN stated to call pharmacy to get correct rectal equivalent from oral dosage of lactulose.
[2020-03-22] MEDS ORDERED: LACTULOSE 20 GM/30 ML UDC ONE ×4 (04:35→15:22)
[2020-03-22] MEDS: ONDANSETRON HCL 4 MG/2 ML VIAL IVP PRN (06:21)
--- NOTE | 2020-03-22 06:32 | NUR ---
Rectal Lactulose Inserted rectal tube to administer lactulose enema, administration was unsuccessful. Attempted via enema, staff assisted to hold buttocks closed for approximately 15 minutes. While her head was flat for enema patient vomited twice. Suctioned patient. Head of bed elevated.
[2020-03-22 06:34] LABS: CALCIUM 7.5 mg/dL (8.4-11.0); CREATININE 2.95 mg/dL (0.55-1.30); POTASSIUM 4.1 mmol/L (3.5-5.1)
--- NOTE | 2020-03-22 06:40 | NUR ---
Closing Notes Patient is resting in bed at this time. patient is very lethargic, Eyes open, still not responding verbally. Head of bed is elevated, suctions set up at bedside. No signs of distress noted. Breathing is even and unlabored. Patient is on room air and tolerating well. Accu check was completed at this time, blood glucose was 136. No insulin coverage needed at this time. Bernard catheter is patent and draining small amount of dark yellow urine. Right forearm 20G is patent and infusing, left forearm 20G is patent and saline locked. All needs met throughout shift. Bed is locked in the lowest position. Call light is within reach. Safety and fall precautions are in place. Will endorse care to dayshift RN
[2020-03-22] MEDS: NACL 0.9% 1,000 ML IV SCH (07:00)
[2020-03-22 07:02] VITALS: BP_SYST 118
--- NOTE | 2020-03-22 08:02 | NUR ---
Initial notes: Patient is not alert or oriented, her blood pressure is a bit on the low side- will monitor. Patients IV is intact and running fluids. She has multiple wounds on both her legs. She is doing well on room air. Patients d/c plan is to transfer to tertiary care for liver transplant allocation. Got report from car shifter nurse. Bed is low, locked, 2 side rails up and call light is within reach. Cassia JONES
[2020-03-22] MEDS: BALSAM PERU/CASTOR OIL 60 GM OINT...G. TP SCH (09:00)
[2020-03-22] MEDS: DOCUSATE SODIUM 100 MG CAPSULE PO SCH (09:00)
[2020-03-22 09:27] VITALS: BP_SYST 110
--- NOTE | 2020-03-22 09:40 | NUR ---
NG tube was placed today to give meds. X-ray was ordered to confirm placement, Cassia JONES
[2020-03-22 09:45] LABS: EOSINOPHILS # (AUTO) 0.1 K/uL (0.0-0.4); EOSINOPHILS % (AUTO) 0.4 % (0.0-4.0); HEMATOCRIT 37.7 % (36-48); LYMPHOCYTES # (AUTO) 1.5 K/uL (1.0-5.5); NEUTROPHILS # (AUTO) 11.6 K/uL (1.8-7.7)
[2020-03-22 09:50] LABS: CALCIUM 7.8 mg/dL (8.4-11.0); CREATININE 2.96 mg/dL (0.55-1.30); POTASSIUM 4.8 mmol/L (3.5-5.1)
[2020-03-22 09:56] LABS: ALBUMIN 1.9 g/dL (3.4-4.8); TOTAL BILIRUBIN 2.3 mg/dL (0.0-1.0)
[2020-03-22] MEDS ORDERED: LACTULOSE 20 GM/30 ML UDC NG SCH (10:00)
[2020-03-22 10:05] LABS: BASOPHILS # (AUTO) 0.1 K/uL (0.0-0.2); BASOPHILS % (AUTO) 0.7 % (0.0-2.0); HEMOGLOBIN 12.2 g/dL (12.0-16.0); LYMPHOCYTES % (AUTO) 10.5 % (20.5-51.5); MEAN CORPUSCULAR HEMOGLOBIN 28 pg (27-31); MEAN CORPUSCULAR HGB CONC 32 % (32-36); MEAN CORPUSCULAR VOLUME 87 fL (79.0-98.0); MONOCYTES % (AUTO) 7.2 % (1.7-9.3); NEUTROPHILS % (AUTO) 81.2 % (40.0-70.0); PLATELET COUNT (AUTO) 277 K/uL (130-430); RED BLOOD CELL COUNT(AUTO) 4.31 MIL/uL (4.2-6.2); RED CELL DISTRIBUTION WIDTH 26.1 % (9.0-15.0); WHITE BLOOD COUNT (AUTO) 14.3 K/uL (4.8-10.8)
--- NOTE | 2020-03-22 10:09 | NUR ---
Meds were given through NG tube w/out difficulty. Bed is low, locked, 2 side rails up and call light is within reach. Cassia JONES
[2020-03-22] MEDS ORDERED: LACTULOSE 20 GM/30 ML UDC NG ONE (10:45)
--- NOTE | 2020-03-22 12:05 | NUR ---
Patients vitals are stable, she was repositioned. Bed is low, locked, 2 side rails up and call light is within reach. Cassia JONES
[2020-03-22] MEDS: RIFAXIMIN 550 MG TABLET PO SCH ×2 (12:21→20:27)
[2020-03-22] MEDS: PANTOPRAZOLE SODIUM 40 MG TAB PO SCH (12:21)
[2020-03-22] MEDS: PROPRANOLOL HCL 10 MG TABLET (INDERAL) PO SCH ×2 (12:23→20:32)
--- NOTE | 2020-03-22 12:44 | NUR ---
Physical Therapy treatment was held today because the patient is too weak to participate. Spoke with the patient's RN who is in agreement with holding treatment today. Plan: attempt treatment tomorrow.
[2020-03-22 12:50] VITALS: BP_SYST 122
--- NOTE | 2020-03-22 12:54 | NUR ---
PHYSICAL THERAPY CO-SIGN The Physical Therapy Progress Notes documented by Vest Backer have been reviewed. Reviewed/Co-Signed by: Bao Pedersen, PT Documentation Done by: JULES WU PTA Addendum: 03/22/20 at 1256 by Bao Pedersen PT Amended: Links added.
--- NOTE | 2020-03-22 12:55 | NUR ---
PHYSICAL THERAPY CO-SIGN The Physical Therapy Progress Notes documented by All Purpose Clerk have been reviewed. Reviewed/Co-Signed by: Bao Pedersen, PT Documentation Done by: JULES WU PTA Addendum: 03/22/20 at 1256 by Bao Pedersen PT Amended: Links added.
[2020-03-22] MEDS: METOLAZONE 5 MG TABLET PO SCH (13:16)
[2020-03-22] MEDS: LACTULOSE 20 GM/30 ML UDC NG SCH ×8 (13:22→23:59)
--- NOTE | 2020-03-22 14:12 | NUR ---
Patients meds were given via ngtube. PICC LINE consent was given to start picc line,. Bed is low, locked, 2 side rails up and call light is within reach. Cassia JONES
--- NOTE | 2020-03-22 15:41 | NUR ---
HCP, REGISTERED NURSE CARDIOVASCULAR ICU CHILD & ADOLESCENT PSYCHIATRIST ALISTAIR [employer] INSTRUCTED ME TO FAX PAPERWORKS (F/S, H/P, CONSULTS, IMAGING REPORTS, PROGRESS NOTES, ETC) TO [facility] ATTTeresa HARRY -- DONE.
--- NOTE | 2020-03-22 16:22 | NUR ---
PICC Line was placed and other IVs D/C as it was leaking. No signs of distress. Bed is low, locked, 2 side rails up and call light is within reach. Cassia JONES
[2020-03-22 16:40] VITALS: BP_SYST 111
--- NOTE | 2020-03-22 18:46 | NUR ---
Closing notes: Patient is still not oriented but moving more. She got an NG tube and a PICC line placed today. She is still waiting for transfer to a liver transplant facility. Vitals have been stable and meds were given w/o a problem today. I will give report to office machine mechanic nurse. Bed is low, locked, 2 side rails up and call light is within reach. Cassia JONES
[2020-03-22 19:34] LABS: INR 1.3 (0.8-1.2); PROTHROMBIN TIME 13.1 SECS (9.5-12.5)
--- NOTE | 2020-03-22 21:45 | NUR ---
New Med Orders Spoke with Dr. Thompson HERNADEZ, received new medication orders for Midodrine 10mg NG BID, Ostrescide 100mcg SubQ TID, Xifaxan 550mg NG TID. Orders entered.
[2020-03-23] MEDS: NACL 0.9% 1,000 ML IV SCH ×2 (00:01→20:45)
[2020-03-23] MEDS: INSULIN REGULAR, HUMAN 100 UNITS/ML, 10 ML VIAL (humuLIN R) SUBCUT PRN ×4 (00:25→16:44)
[2020-03-23] MEDS: LACTULOSE 20 GM/30 ML UDC NG SCH ×10 (01:19→11:54)
[2020-03-23 01:35] VITALS: BP_SYST 123
--- NOTE | 2020-03-23 06:39 | NUR ---
Closing Note Patient is resting in bed,lethargic, Eyes closed, still not responding verbally. HOB elevated, suctions set up at bedside. No signs of distress noted. Breathing is even and unlabored. Patient is on room air and tolerating well. Accu check was completed at this time, blood glucose was 160. Regular insulin 2 units coverage needed at this time. Bernard catheter is patent and draining small amount of dark yellow urine. Right forearm 20G is patent and saline locked. IVF running to PICC line, patent. All needs met throughout shift. Bed is locked in the lowest position. Call light is within reach. Safety and fall precautions are in place. Will endorse care to dayshift RN
[2020-03-23 07:07] LABS: BASOPHILS % (AUTO) 0.1 % (0.0-2.0); EOSINOPHILS % (AUTO) 0.2 % (0.0-4.0); HEMATOCRIT 35.7 % (36-48); HEMOGLOBIN 11.7 g/dL (12.0-16.0); LYMPHOCYTES # (AUTO) 1.2 K/uL (1.0-5.5); LYMPHOCYTES % (AUTO) 8.7 % (20.5-51.5); MEAN CORPUSCULAR HEMOGLOBIN 29 pg (27-31); MEAN CORPUSCULAR HGB CONC 33 % (32-36); MEAN CORPUSCULAR VOLUME 88 fL (79.0-98.0); MONOCYTES # (AUTO) 0.7 K/uL (0.0-1.0); MONOCYTES % (AUTO) 5.3 % (1.7-9.3); NEUTROPHILS # (AUTO) 11.5 K/uL (1.8-7.7); NEUTROPHILS % (AUTO) 85.7 % (40.0-70.0); PLATELET COUNT (AUTO) 221 K/uL (130-430); RED BLOOD CELL COUNT(AUTO) 4.08 MIL/uL (4.2-6.2); RED CELL DISTRIBUTION WIDTH 26.5 % (9.0-15.0); WHITE BLOOD COUNT (AUTO) 13.4 K/uL (4.8-10.8)
--- NOTE | 2020-03-23 07:10 | NUR ---
RECEIVED REPORT FROM 7AM RN. PATIENT NON-VERBAL AT PRESENT, OPENS HER EYES WHEN HER NAME IS VERBALIZED. DOUBLE LUMEN PICC LINE TO RIGHT UPPER ARM IN USE. NGT VIA NOSTRILS IN PLACE. PACE CATH IN PLACE, DRAINING TO GRAVITY. NAD NOTED. Addendum: 03/24/20 at 0255 by [employer] electric freight car operator DISCARD, TIME ENTRY INCORRECT.
--- NOTE | 2020-03-23 07:15 | NUR ---
received patient lethargic, generalized jaundice noted. has ngt clamped for medication. lungs bilaterally diminished at the bases. abdomen distended and active bowel sounds noted. patient obese. vitals signs stable. afebrile. has picc line on the right upper arm. with normal saline at 50cc/hr infusing on well. has saline lock on rt forearm #22 saline lock patent and dry. has buchanan catheter in placed draining [place] urine. generalized edema noted. has wound on both thighs noted. dressing needs to be changed. will continue to monitor.
[2020-03-23 07:41] LABS: POTASSIUM 4.3 mmol/L (3.5-5.1)
[2020-03-23 07:42] LABS: CALCIUM 7.5 mg/dL (8.4-11.0); CREATININE 3.35 mg/dL (0.55-1.30); TOTAL BILIRUBIN 2.1 mg/dL (0.0-1.0)
[2020-03-23 07:43] LABS: ALBUMIN 1.9 g/dL (3.4-4.8)
[2020-03-23 08:00] VITALS: BP_SYST 151
--- NOTE | 2020-03-23 08:00 | NUR ---
turn to sides. hob elevated. with pillows to sides. dr murcia came. informed of the ammonia level and lethargy.
[2020-03-23] MEDS: BALSAM PERU/CASTOR OIL 60 GM OINT...G. TP SCH (09:00)
--- NOTE | 2020-03-23 09:41 | NUR ---
P.T. NOTES PER NURSING PATIENT'S P.T. TREATMENT WILL BE PUT ON HOLD DUE TO PATIENT BEING LETHARGIC AND UNABLE TO FOLLOW EVEN SIMPLE COMMANDS.
--- NOTE | 2020-03-23 10:00 | NUR ---
every hour lactulose as ordered.
--- NOTE | 2020-03-23 10:15 | NUR ---
other due meds given via ngt tube.
[2020-03-23] MEDS: DOCUSATE SODIUM 100 MG CAPSULE PO SCH (10:32)
[2020-03-23] MEDS: MIDODRINE HCL 5 MG TABLET (PROAMATINE) PO SCH ×2 (10:32→21:20)
[2020-03-23] MEDS: RIFAXIMIN 550 MG TABLET NG SCH ×3 (10:33→21:20)
[2020-03-23] MEDS: PANTOPRAZOLE SODIUM 40 MG TAB PO SCH (10:33)
[2020-03-23] MEDS: PROPRANOLOL HCL 10 MG TABLET (INDERAL) PO SCH ×2 (10:33→21:21)
[2020-03-23] MEDS: METOLAZONE 5 MG TABLET PO SCH (11:38)
[2020-03-23] MEDS: OCTREOTIDE ACETATE 100 MCG/ML AMP SUBCUT SCH ×3 (11:38→21:00)
--- NOTE | 2020-03-23 12:00 | NUR ---
repositioned to sides. pillows on the sides. has buchanan catheter in placed draining [place] urine.
[2020-03-23 12:24] VITALS: BP_SYST 135
--- NOTE | 2020-03-23 13:27 | NUR ---
Nutrition F/U Admission Dx: Liver Failure PMH: nonalcoholic cirrhosis, DM, HTN, and hepatorenal syndrome per physician notes. 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 Pt is s/p paracentesis on 03/16 with 4L removed per EMR. Current Diet Order/Nutrition Support: Mechanical soft x 7 days Subjective Info: RD called pt's primary RN three times today --- no response. Per MD note, pt more lethargic, had NG tube (03/23/20) and PICC line (03/22/20) placed, and is awaiting for liver transplant evaluation. Pt also impending dialysis per MD note. Pt found with open wounds on both thighs per RN notes. Per EMR pt has negligible PO intake with last BM x 6 yesterday. New wt changed noted -- 6# wt loss within 1 day -- likely d/t fluid status related to pt's compromised liver function. Pt is not meeting nutritional needs. ONS is not appropriate d/t possible need for fluid restrictions related to pt's hx of renal disease. Pertinent Medications: colace, lactulose, zofran, SSI Pertinent Labs: BUN 85 H, CRE 3.35 H, eGFR 18 L, POC BG 160 H (improved), BG 190 H, ALP 294 H, Tbili 2.1 H, WBC 11.5 H, H/H 11.7 L/35.7 L (improved) Skin Integrity Comment: Seun Score: 12; Gold Plater note 03/19/20 reviewed; per nursing notes, edema noted to bilateral foot: 4+ pitting/bilateral le+ pitting (03/23/20) Current % PO: 0% average x 3 meals -- negligible Estimated Energy Expenditure (kcals/day) 1550-1860kcal/day (25-30kcal/kg based on Adj BW for Chronic Dz/obesity) Estimated Protein Required (g/day) 50-93g/day (0.8-1.5/kg based on AdjBW for Chronic Dz) Estimated Fluid Required (l/day) Deferred to MD d/t Chronic Renal Dz Problem/Etiology/Signs/Symptoms Inadequate protein energy intake related estimated nutrition requirements as evidenced by PO intake not meeting nutrition needs *ongoing Expected Outcomes/Goals Monitor appetite and PO intakes w/ goal of pt meeting at least 50% of estimated nutritional needs, labs trending WNL, normal GI function, and skin integrity/wt maintenance Dietitian Recommendations * Recommend continuing mechanical soft diet * Recommend continuing snacks BID * Encourage PO intake as tolerated * If negligible PO intake persists, consider alternative means of nutrition. Follow Up High Risk: F/U in 2-3 days
--- NOTE | 2020-03-23 13:52 | NUR ---
Dietitian Recommendations * Recommend continuing mechanical soft diet * Recommend continuing snacks BID * Encourage PO intake as tolerated * If negligible PO intake persists, consider alternative means of nutrition. Please see Nutrition F/U for details. COURT NICOLE
--- NOTE | 2020-03-23 15:30 | NUR ---
turn to sides and repositioned loose stool many times.
--- NOTE | 2020-03-23 15:57 | NUR ---
CONSULTATION PAGED/CALLED Reason for Consultation: [] BLAZE PLACEMENT Person Who was Notified: [] CHANTE Consulting Physician: [] DR Balwinder ELAINE Mapping Analyst Specialty: [] GEN SURGEON Ordering Physician: [] DR GRAY
--- NOTE | 2020-03-23 16:00 | NUR ---
due meds given.
[2020-03-23 16:11] VITALS: BP_SYST 130
[2020-03-23] MEDS: LACTULOSE 20 GM/30 ML UDC PO SCH ×2 (18:06→21:29)
--- NOTE | 2020-03-23 18:09 | NUR ---
closing: latest bs 154 mg/dl. coverage given. still lethargic. no oxygen noted. hob elevated. still with picc line right upper arm. saline lock. no iv fluids as ordered by Dr Henry. needs a alley catheter placement tomorrow. Dr Morales and Dr Nation talked to each other ok to do the placement tomorrow. consent signed for placement and hemodialysis procedure soon. dr Navarro seen the patient. dressing changed at the both thighs. lactulose 30 ml given at this time. every 3 hours as ordered. no sob no pain afebrile. will endorsed to incoming nurse.
--- NOTE | 2020-03-23 19:10 | NUR ---
RECEIVED REPORT FROM 7AM RN. PATIENT NON-VERBAL AT PRESENT, OPENS HER EYES WHEN HER NAME IS VERBALIZED. DOUBLE LUMEN PICC LINE TO RIGHT UPPER ARM IN USE. NGT VIA NOSTRILS IN PLACE. PACE CATH IN PLACE, DRAINING TO GRAVITY. NAD NOTED.
[2020-03-23 20:00] VITALS: BP_SYST 133
--- NOTE | 2020-03-23 22:30 | NUR ---
MED PASS DONE, MEDS VIA NGT, PATIENT TOLERATED WELL. PT MOANING, AND GRIMACING, WHEN ASKED ARE YOU IN PAIN Pt ABLE TO VERBALIZE "YES" FAINTLY. MORPHINE SULFATE .1 ML GIVEN IVP. WILL CONT. TO MONITOR.
[2020-03-23] MEDS: MORPHINE SULFATE 10 MG/ML VIAL IVP PRN (23:09)
[2020-03-24] VITALS (8 sets, daily range): BP systolic 93–131
--- NOTE | 2020-03-24 00:30 | NUR ---
BS DONE = 176 ML/DL.
[2020-03-24] MEDS: ACETAMINOPHEN 325 MG TABLET PO PRN (00:49)
[2020-03-24] MEDS: LACTULOSE 20 GM/30 ML UDC PO SCH ×8 (01:23→22:27)
--- NOTE | 2020-03-24 01:40 | NUR ---
Pt. MOANING, VERBALIZING "YES" SHE IS IN PAIN, TYLENOL 1 TAB GIVEN VIA NGT, LACTULOSE 30 ML VIA NGT GIVEN PER ORDERS. NGT FLUSHED W/ 120 ML OF WATER. Pt. W/ LARGE AMOUNT OF LIQUID STOOL, LINENS ARE COMPLETELY SATURATED FOR THE SECOND TIME. FLEXISEAL RECTAL TUBE INSERTED. REPEAT, BED BATH DONE W/ BERTHA CARE, PT TOLERATED WELL. RE- POSITIONED, COMFORT CARE GIVEN - COVERED W/ WARM BLANKET. ASLEEP @ PRESENT. NAD NOTED.
--- NOTE | 2020-03-24 04:30 | NUR ---
ON ROUNDS Pt REPOSITIONED, MADE COMFORTABLE, RETURNED TO SLEEP SHORTLY AFTER. NAD NOTED.
--- NOTE | 2020-03-24 05:38 | NUR ---
0505 RECIEVED ORDER FOR LAB DRAW. LAB DRAW DONE VIA PICC LINE BY Pt.'s NURSE W/ LUNCHROOM OPERATOR AT BEDSIDE. MED PASS DONE. ACU CHECK 176 MG/DL. PT TOLERATED WELL. RESTING QUIETLY, NAD NOTED.
[2020-03-24 06:16] LABS: BASOPHILS % (AUTO) 0.2 % (0.0-2.0); EOSINOPHILS % (AUTO) 0.1 % (0.0-4.0); HEMATOCRIT 33.2 % (36-48); HEMOGLOBIN 10.8 g/dL (12.0-16.0); LYMPHOCYTES % (AUTO) 7.5 % (20.5-51.5); MEAN CORPUSCULAR HEMOGLOBIN 28 pg (27-31); MEAN CORPUSCULAR HGB CONC 33 % (32-36); MEAN CORPUSCULAR VOLUME 87 fL (79.0-98.0); MONOCYTES # (AUTO) 0.8 K/uL (0.0-1.0); MONOCYTES % (AUTO) 5.7 % (1.7-9.3); NEUTROPHILS # (AUTO) 12.1 K/uL (1.8-7.7); NEUTROPHILS % (AUTO) 86.5 % (40.0-70.0); PLATELET COUNT (AUTO) 147 K/uL (130-430); RED BLOOD CELL COUNT(AUTO) 3.83 MIL/uL (4.2-6.2)
[2020-03-24 06:27] LABS: ALBUMIN 1.7 g/dL (3.4-4.8); CALCIUM 7.5 mg/dL (8.4-11.0); CREATININE 3.61 mg/dL (0.55-1.30)
[2020-03-24 07:02] LABS: RED CELL DISTRIBUTION WIDTH 26.8 % (9.0-15.0)
--- NOTE | 2020-03-24 07:20 | NUR ---
REPORT TO AM RN. Pt ASLEEP, NAD NOTED.
--- NOTE | 2020-03-24 07:25 | NUR ---
BS DONE = 127 MG/DL. REPORT TO ERMELINDA JONES Addendum: 03/24/20 at 0854 by Aubrey Trujillo RN DELETE ENTRY ERROR.
--- NOTE | 2020-03-24 08:15 | NUR ---
Opening Notes Patient is laying in bed. Arousable to name and touch, alert and oriented x1. No resp distress noted. Patient shows no signs and symptoms of pain at this time. NG tube in place and intact. PICC line on right upper arm, flushing well, intact, no redness or irritation. NS @ 50 ml/hr. Bernard catheter in place, with brown tea colored urine. Rectal tube in place. Abdomen distended. Pitting edema 4+, noted on bilateral lower extremities. Dressings noted on bilateral upper thighs. Dressing noted on forearms. Safety measures implemented. Call light within reach. Bed in lowest position, alarm on, locked.
[2020-03-24] MEDS: RIFAXIMIN 550 MG TABLET NG SCH ×3 (09:02→21:19)
[2020-03-24] MEDS: METOLAZONE 5 MG TABLET PO SCH (09:03)
[2020-03-24] MEDS: DOCUSATE SODIUM 100 MG CAPSULE PO SCH (09:04)
[2020-03-24] MEDS: PANTOPRAZOLE SODIUM 40 MG TAB PO SCH (09:04)
[2020-03-24] MEDS: MIDODRINE HCL 5 MG TABLET (PROAMATINE) PO SCH ×2 (09:04→21:20)
[2020-03-24] MEDS: PROPRANOLOL HCL 10 MG TABLET (INDERAL) PO SCH ×2 (09:05→21:19)
[2020-03-24] MEDS ORDERED: MIDODRINE HCL 5 MG TABLET (PROAMATINE) ONE (09:17)
--- NOTE | 2020-03-24 10:29 | NUR ---
CONSULTATION FOLLOW-UP REASON FOR CONSULTATION:BLAZE PLACEMENT WAS CONSULT CALLED?Y PERSON WHO WAS NOTIFIED:EXCHANGE CONSULTING PHYSICIAN:BESSY MARTINEZ DIRECTOR GLOBAL SPECIALTY:SURGEON DIRECTOR GLOBAL PHONE NUMBER:[phone] REQUESTING PHYSICIAN:ZENAIDA JO
[2020-03-24] MEDS ORDERED: POTASSIUM CHLORIDE 20 MEQ/PKT PACKET PO ONE (11:30)
--- NOTE | 2020-03-24 11:55 | NUR ---
Blood Sugar Patients blood sugar was noted at 178 mg/dL. Patient was given 2 units of regular insulin per sliding scale. Tolerated well, will continue to monitor.
[2020-03-24] MEDS: OCTREOTIDE ACETATE 100 MCG/ML AMP SUBCUT SCH ×3 (12:01→21:20)
[2020-03-24] MEDS: BALSAM PERU/CASTOR OIL 60 GM OINT...G. TP SCH (12:02)
--- NOTE | 2020-03-24 12:32 | NUR ---
Rounds Patient is laying in bed sleeping. No resp distress noted. Patient is noted with moaning in pain. Patient was given pain medication as ordered by MD, tolerated well. Bilateral upper extremities were noted with weeping. Safety measures implemented. HOB at 30 degrees. Repositioned with pillows. Bed in lowest position, alarm on, locked.
[2020-03-24] MEDS: INSULIN REGULAR, HUMAN 100 UNITS/ML, 10 ML VIAL (humuLIN R) SUBCUT PRN ×2 (12:36→17:09)
[2020-03-24] MEDS ORDERED: HEPARIN SODIUM,PORCINE 5000 UNITS/ML VIAL MC ONE (13:00)
[2020-03-24] MEDS: MORPHINE SULFATE 10 MG/ML VIAL IVP PRN (13:15)
[2020-03-24] MEDS ORDERED: HEPARIN SODIUM,PORCINE 5000 UNITS/ML VIAL ONE ×2 (15:31→19:36)
--- NOTE | 2020-03-24 15:45 | NUR ---
BLAZE CATH PLACEMENT: BLAZE cath inserted by Dr. Morales on the left subclavian, biopatch applied and covered with tegaderm, placement verified by Chest Xray. saw the xray and okayed to be used. agriculture specialist was notified by household appliances service technician.
--- NOTE | 2020-03-24 17:00 | NUR ---
Glucerna and Blood Sugar Patient started on enteral feedings: Glucerna @ 30 cc/hr. HOB raised 30 degrees. No residual noted. Patient tolerating feeding well at this time. Patients blood sugar was noted at 189 mg/dL. Administered 2 units of regular insulin, tolerated well. Will continue to monitor.
[2020-03-24] MEDS: NACL 0.9% 1,000 ML IV SCH (17:06)
[2020-03-24] MEDS ORDERED: ALBUMIN HUMAN 25% 200 ML IV ONE ×2 (17:30→17:55)
--- NOTE | 2020-03-24 18:12 | NUR ---
*Enteral feedings via NGTUBE
--- NOTE | 2020-03-24 18:12 | NUR ---
Closing Notes Patient is resting in bed receiving hemodialysis at this time. No resp distress noted. Patient shows no signs and symptoms of pain at this time. Safety measures implemented. Call light within reach. Bed in lowest position, alarm on, locked. Will continue to monitor until oncoming nurse comes on shift.
--- NOTE | 2020-03-24 18:20 | NUR ---
discharge planning/ [facility] transfer: Received call from [facility] admitting, wants watch caser to obtain authorization from the insurance. Relayed message to SIRI Chiang ([phone]) rn urgent care. Face sheet and H & P faxed to [phone] Addendum: 03/24/20 at 1837 by Opal Razo RN Kelly watch caser is aware of the DC plan to [facility]. H & P/ facesheet faxed to
--- NOTE | 2020-03-24 19:25 | NUR ---
CHANGE OF SHIFT; pt. received on dialysis in progress. pt. lethargic , non verbal. IVF and g tube feeding continuous. will assess later. unable to use call light, needs frequent rounds.
[2020-03-24] MEDS ORDERED: COMMUNICATION ORDER XX ONE (19:30)
[2020-03-24] MEDS ORDERED: HEPARIN SODIUM,PORCINE 5000 UNITS/ML VIAL MC PRN (19:45)
--- NOTE | 2020-03-24 20:30 | NUR ---
NOTES: hemodialysis completed with only 100 cc out per dialysis nurse. pt. remains lethargic, even calling her name , able to move a little bit on stimulation. IV infusing via PICC line on rt. upper arm with NS @ 50 cc/hr. David cath on rt. subclavian for HD access. noted with generalized edema, abdomen distended with ascites, NGT tube feeding at 30 cc/hr, @ 5 cc residual, checked for patency. on manager monitoring and shows sinu rhythm. buchanan cath to OSD and rectal tube. noted both arms ecchymotic and wrapped with gauze. bilateral thighs also with foam dressing. pt. repositioned. bed alarm on, on fall risk precautions.
--- NOTE | 2020-03-24 22:00 | NUR ---
NOTES: pt. noted starting to wake up, moaning. repositioned. NGT tube feeding continuous, due medications given.
[2020-03-25] MEDS: INSULIN REGULAR, HUMAN 100 UNITS/ML, 10 ML VIAL (humuLIN R) SUBCUT PRN ×5 (00:32→23:55)
[2020-03-25] MEDS: LACTULOSE 20 GM/30 ML UDC PO SCH ×7 (00:34→20:39)
--- NOTE | 2020-03-25 00:35 | NUR ---
NOTES: Blood sugar checked 169, sliding scale coverage given. pt. sleeping at this time.
--- NOTE | 2020-03-25 02:00 | NUR ---
NOTES: pt. awake, starts moving her upper arms. condition observed. cardiac pattern unchanged.
--- NOTE | 2020-03-25 02:30 | NUR ---
NOTES: pt. starting to be more awake but now been removing her gown and pulling out her leads off her chest, moving more a lot of her upper arms.
--- NOTE | 2020-03-25 03:05 | NUR ---
NOTES; pt. again pulled out her leads, gown and now almost removed NGT. tried to tell her not to remove or pull out but non compliant, called Dr. Cummins, agronomist for Dr. lAcazar , bilateral soft wrist restraints applied. will continue to observe.
--- NOTE | 2020-03-25 05:00 | NUR ---
NOTES: complete am care /gopal/oral care done. bilateral soft wrist restraints on. still kind of confused. repositioned. noted some leak on rectal tube , added @ 10 cc NS on the baloon. remains edmatous all over. AG cloth on her bilateral groin. IV patent. more awake,
[2020-03-25 06:19] LABS: INR 1.6 (0.8-1.2)
[2020-03-25 06:41] LABS: ALBUMIN 2.4 g/dL (3.4-4.8); CALCIUM 7.6 mg/dL (8.4-11.0); CREATININE 3.03 mg/dL (0.55-1.30); POTASSIUM 3.3 mmol/L (3.5-5.1); TOTAL BILIRUBIN 2.6 mg/dL (0.0-1.0)
--- NOTE | 2020-03-25 06:59 | NUR ---
CLOSING NOTES; PT. MORE AWAKE, SOFT BILATERAL RESTRAINTS MAINTAINED. ngt INTACT, START ALARMING FREE FLOW ON THE MACHINE, FLUSHED WITH WATER. ivf PATENT , BLOOD DRAW FROM PICC LINE THIS AM. SANJEEV IN PLACE. FRO FURTHER CARE AND ASSISTANCE .WILL ENDORSE TO DAY SHIFT.
[2020-03-25] MEDS: ONDANSETRON HCL 4 MG/2 ML VIAL IVP PRN (07:29)
--- NOTE | 2020-03-25 07:29 | NUR ---
AM ROUNDS: Patient is awake oriented x3. Medicated with Zofran for nausea. Glucerna at 30 cc/hr via NGT to the right nares, placement confirmed per auscultation, no gastric residual noted. IVF ov ns at 50 cc/hr infusing on the right upper arm PICC liner. Head of the bed elevated at 35 degrees. Call light within reach.
[2020-03-25 07:48] VITALS: BP_SYST 97
[2020-03-25 07:54] LABS: BASOPHILS % (AUTO) 0.2 % (0.0-2.0); EOSINOPHILS % (AUTO) 0.3 % (0.0-4.0); HEMATOCRIT 28.1 % (36-48); LYMPHOCYTES # (AUTO) 0.9 K/uL (1.0-5.5); LYMPHOCYTES % (AUTO) 8.4 % (20.5-51.5); MEAN CORPUSCULAR HEMOGLOBIN 28 pg (27-31); MEAN CORPUSCULAR HGB CONC 32 % (32-36); MEAN CORPUSCULAR VOLUME 88 fL (79.0-98.0); MONOCYTES # (AUTO) 0.7 K/uL (0.0-1.0); NEUTROPHILS # (AUTO) 9.6 K/uL (1.8-7.7); PLATELET COUNT (AUTO) 77 K/uL (130-430); RED BLOOD CELL COUNT(AUTO) 3.19 MIL/uL (4.2-6.2); RED CELL DISTRIBUTION WIDTH 27.2 % (9.0-15.0); WHITE BLOOD COUNT (AUTO) 11.3 K/uL (4.8-10.8)
[2020-03-25] MEDS: PROPRANOLOL HCL 10 MG TABLET (INDERAL) PO SCH ×2 (08:56→20:37)
[2020-03-25] MEDS: OCTREOTIDE ACETATE 100 MCG/ML AMP SUBCUT SCH ×3 (08:56→20:38)
[2020-03-25] MEDS: DOCUSATE SODIUM 100 MG CAPSULE PO SCH (08:56)
[2020-03-25] MEDS: RIFAXIMIN 550 MG TABLET NG SCH ×3 (08:56→20:37)
[2020-03-25] MEDS: METOLAZONE 5 MG TABLET PO SCH (08:57)
[2020-03-25] MEDS: MIDODRINE HCL 5 MG TABLET (PROAMATINE) PO SCH ×2 (08:57→20:36)
[2020-03-25] MEDS: PANTOPRAZOLE SODIUM 40 MG TAB PO SCH (08:57)
[2020-03-25] MEDS: BALSAM PERU/CASTOR OIL 60 GM OINT...G. TP SCH (08:58)
[2020-03-25 09:36] LABS: NEUTROPHILS % (AUTO) 85.1 % (40.0-70.0)
[2020-03-25] MEDS ORDERED: METOCLOPRAMIDE HCL 10 MG/2 ML VIAL IVP ONE (10:30)
--- NOTE | 2020-03-25 10:51 | NUR ---
Nausea: Still complaints of persistent nausea, first dose of reglan 10 mg IVp given.
[2020-03-25 12:00] VITALS: BP_SYST 92
[2020-03-25] MEDS: NACL 0.9% 1,000 ML IV SCH (13:58)
--- NOTE | 2020-03-25 14:00 | NUR ---
Rounds: Patient is calm, no pulling out of tubings noted.
[2020-03-25 16:54] VITALS: BP_SYST 107
[2020-03-25] MEDS: METOCLOPRAMIDE HCL 10 MG/2 ML VIAL IVP SCH ×2 (17:13→23:54)
--- NOTE | 2020-03-25 18:10 | NUR ---
End of shift: Needs attended. No change in condition:
--- NOTE | 2020-03-25 19:15 | NUR ---
CHANGE OF SHIFT; pt. pretty awake ,alert, knows where she is when received. off restraints, been wanting ice water, on continuous NGT feeding. no acute distress, will assess later, unable to use call light, will do frequent rounds.
[2020-03-25 20:30] VITALS: BP_SYST 120
--- NOTE | 2020-03-25 20:30 | NUR ---
NOTES: pt. pretty awake, asking for water, telling me that Dr. Renee told her she could have water. pt. more alert, knows her name , where she is and her birthday. reminded pt. not to pull out anything. NGT feed continuous with Glucerna @ 30 cc/hr, checked residual @ 5 cc. alley cath on left subclavian, schedule for Hemodialysis tomorrow. pt. with generalized edema and abdomen distended and ascites. PICC line on rt. upper arm, NS @ 50 cc/hr. ,double lumen cath. on environmental monitoring specialist and shows sinus rhythm. buchanan and rectal tube in place. wound on both thighs and dressing intact. both arms ecchymotic and with kerlix gauze dressing. HOB elevated to prevent aspiration. on room air. call light at bedside.
--- NOTE | 2020-03-25 21:30 | NUR ---
NOTES: due meds given per NGT. repositioned. been asking and giving small ice chips. noted full liquid diet on top of tube feed. bed alarm on.
--- NOTE | 2020-03-25 23:00 | NUR ---
NOTES: condition observed, been dozing on and off at intervals, occ. moaning noted.
[2020-03-26] MEDS: ACETAMINOPHEN 325 MG TABLET PO PRN ×2 (00:08→21:27)
--- NOTE | 2020-03-26 00:10 | NUR ---
NOTES: pt. still awake, c/o generalized pain, asked for Tylenol and given per ngt. informed pt. its past midnight, repositioned. Addendum: 03/26/20 at 0151 by Santa Gee RN Late entry: BS checked 235 with sliding scale coverage.
[2020-03-26 01:20] VITALS: BP_SYST 99
--- NOTE | 2020-03-26 02:30 | NUR ---
NOTES: still noted with pain , a little less, still remains awake, constantly asking for ice water, been giving ice chips. NGT feed continuous.
[2020-03-26] MEDS: NACL 0.9% 1,000 ML IV SCH (04:27)
--- NOTE | 2020-03-26 04:30 | NUR ---
NOTES; pt. starts dozing off. eyes closed. condition observe, continue to monitor. cardiac pattern unchanged.
--- NOTE | 2020-03-26 05:00 | NUR ---
NOTES: complete am/gopal care done, linen changed and gown. sacral area reddened, clean with soap and water and applied z lisa cream, both heels elevated with pillow, z lisa cream , pt. on air mattress already. repositioned. IV site patent. NGT intact. bed alarm on.
[2020-03-26 06:28] LABS: INR 1.5 (0.8-1.2); PROTHROMBIN TIME 15.2 SECS (9.5-12.5)
[2020-03-26] MEDS: METOCLOPRAMIDE HCL 10 MG/2 ML VIAL IVP SCH ×3 (06:30→17:06)
[2020-03-26] MEDS: INSULIN REGULAR, HUMAN 100 UNITS/ML, 10 ML VIAL (humuLIN R) SUBCUT PRN ×3 (06:33→16:55)
--- NOTE | 2020-03-26 06:45 | NUR ---
CLOSING NOTES; pt. now getting sleepy. IV patent, buchanan/rectal tube intact. NGT feeding continuous. pt. more alert,always reminding not to pull out any tubings, follows simple commands. for further care and observation. on fall risk precautions. call light within reach.no distress.will endorse to day shift.
[2020-03-26 07:38] LABS: BASOPHILS % (AUTO) 0.4 % (0.0-2.0); EOSINOPHILS # (AUTO) 0.1 K/uL (0.0-0.4); EOSINOPHILS % (AUTO) 0.8 % (0.0-4.0); HEMATOCRIT 33.1 % (36-48); HEMOGLOBIN 10.6 g/dL (12.0-16.0); LYMPHOCYTES % (AUTO) 8.6 % (20.5-51.5); MEAN CORPUSCULAR HEMOGLOBIN 28 pg (27-31); MEAN CORPUSCULAR HGB CONC 32 % (32-36); MEAN CORPUSCULAR VOLUME 89 fL (79.0-98.0); MONOCYTES # (AUTO) 0.7 K/uL (0.0-1.0); MONOCYTES % (AUTO) 6.5 % (1.7-9.3); NEUTROPHILS # (AUTO) 9.4 K/uL (1.8-7.7); NEUTROPHILS % (AUTO) 83.7 % (40.0-70.0); PLATELET COUNT (AUTO) 58 K/uL (130-430); RED BLOOD CELL COUNT(AUTO) 3.74 MIL/uL (4.2-6.2); RED CELL DISTRIBUTION WIDTH 27.5 % (9.0-15.0); WHITE BLOOD COUNT (AUTO) 11.2 K/uL (4.8-10.8)
[2020-03-26 07:39] LABS: CALCIUM 7.5 mg/dL (8.4-11.0); CREATININE 3.72 mg/dL (0.55-1.30)
[2020-03-26 07:44] LABS: ALBUMIN 2.3 g/dL (3.4-4.8); TOTAL BILIRUBIN 2.2 mg/dL (0.0-1.0)
[2020-03-26 07:49] LABS: POTASSIUM 2.8 mmol/L (3.5-5.1)
[2020-03-26 08:00] VITALS: BP_SYST 101
--- NOTE | 2020-03-26 08:00 | NUR ---
initial notes rec patient asleep but arousable to stimuli. ivf infusing well on the r upper arm picc line. no infiltration noted. hob slightly elevated. resp easy and unlabored. no sob noted. ngt intact and patent chava well. buchanan cath /rectal patient. will continue to monitor patient.
[2020-03-26] MEDS: LACTULOSE 20 GM/30 ML UDC PO SCH ×4 (09:00→21:21)
[2020-03-26] MEDS: OCTREOTIDE ACETATE 100 MCG/ML AMP SUBCUT SCH ×3 (09:00→21:28)
[2020-03-26] MEDS: METOLAZONE 5 MG TABLET PO SCH (09:00)
[2020-03-26] MEDS: PROPRANOLOL HCL 10 MG TABLET (INDERAL) PO SCH ×2 (09:00→21:22)
[2020-03-26] MEDS: PANTOPRAZOLE SODIUM 40 MG TAB PO SCH (09:00)
[2020-03-26] MEDS: MIDODRINE HCL 5 MG TABLET (PROAMATINE) PO SCH ×2 (09:00→21:21)
[2020-03-26] MEDS: RIFAXIMIN 550 MG TABLET NG SCH ×3 (09:00→21:21)
[2020-03-26] MEDS: DOCUSATE SODIUM 100 MG CAPSULE PO SCH (09:00)
--- NOTE | 2020-03-26 09:00 | NUR ---
rounds seen by dr murcia and with orders. no sob noted. turned repositioned for comfort.
--- NOTE | 2020-03-26 09:42 | NUR ---
CONSULTATION PAGED REASON FOR CONSULTATION:HOSPICE WAS CONSULT CALLED?Y PERSON WHO WAS NOTIFIED:LEFT VOICEMAIL CONSULTING PHYSICIAN:JACE REYES DIRECTOR OF PLANNING SPECIALTY:HOSPICE AND PALIATIVE DIRECTOR OF PLANNING PHONE NUMBER:[phone] REQUESTING PHYSICIAN:NAEEM DAMIAN
--- NOTE | 2020-03-26 09:44 | NUR ---
P.T. NOTES UNABLE TO SEE PATIENT AT THIS TIME, PATIENT IS CURRENTLY HAVING DIALYSIS TREATMENT.
--- NOTE | 2020-03-26 10:47 | NUR ---
Nutrition F/U Admission Dx: Liver Failure PMH: nonalcoholic cirrhosis, DM, HTN, and hepatorenal syndrome per physician notes. 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 Pt is s/p paracentesis on 03/16 with 4L removed per EMR. Current Diet Order/Nutrition Support: Full Liquid Diet (03/26/20) Subjective Info: RD spoke with RN -- pt received TF Glucerna 1.2 at 30 ml/hr with water flushes at 150 ml Q6h yesterday. Pt was tolerating TF well with no residuals per RN. RN confirmed that MD has d/c TF regimen this morning, and that pt's diet order has been changed to Full Liquid Diet. RN reported pt eating 20% of cream of wheat and drank 1 bottle of Ensure this morning. Last BM x 2 on 03/25/20 per EMR. New wt changes noted -- 7# wt loss within 2 days -- likely d/t fluid status related to pt's compromised liver function. Previous TF regimen (Glucerna at 1.2 at 30 ml/hr) provides: 864 kcal and 43 g protein, meeting 46% of lower end estimated caloric needs and 86% of lower end estimated protein needs. Pt is not yet meeting nutritional needs. Pertinent Medications: colace, lactulose, zofran, SSI, reglan Pertinent Labs: BUN 64 H (improved), CRE 3.72 H, eGFR 16 L, POC BG 202 H, BG 233 H, ALP 297 H, Tbili 2.2 H, WBC 11.2 H, H/H 10.6 L/33.1 L (improved) Skin Integrity Comment: Seun Score: 12; Finished Yarn Examiner note 03/19/20 reviewed; per nursing notes, edema noted to bilateral foot: 3+ pitting/bilateral le+ pitting (03/25/20); generalized edema (03/25/20) Current % PO: Less than 25%, Negligible Estimated Energy Expenditure (kcals/day) 1550-1860kcal/day (25-30kcal/kg based on Adj BW for Chronic Dz/obesity) Estimated Protein Required (g/day) 50-93g/day (0.8-1.5/kg based on AdjBW for Chronic Dz) Estimated Fluid Required (l/day) Deferred to MD d/t Chronic Renal Dz Problem/Etiology/Signs/Symptoms Inadequate protein energy intake related estimated nutrition requirements as evidenced by PO intake not meeting nutrition needs *ongoing Expected Outcomes/Goals Monitor appetite and PO intakes w/ goal of pt meeting at least 50% of estimated nutritional needs, labs trending WNL, normal GI function, and skin integrity/wt maintenance Dietitian Recommendations * Recommend continuing Full Liquid Diet * Recommend provide Glucerna TID as ONS with meals for pt to optimize nutritional intake. Glucerna TID provides: 660 kcal, 30 g protein * Encourage PO intake as tolerated Follow Up High Risk: F/U in 2-3 days
--- NOTE | 2020-03-26 11:00 | NUR ---
rounds seen by dr carl and with orders. bed to the lowest position . no osb noted.
--- NOTE | 2020-03-26 11:18 | NUR ---
Dietitian Recommendations * Recommend continuing Full Liquid Diet * Recommend provide Glucerna TID as ONS with meals for pt to optimize nutritional intake. Glucerna TID provides: 660 kcal, 30 g protein * Encourage PO intake as tolerated Please see Nutrition F/U for details. COURT NICLOE Addendum: 03/26/20 at [address] Dietitian Recommendation: *Recommend Full liquid CCHO diet w/ Glucerna TID. ONS will provide additional 660 kcal and 30gm protein daily. *Encourage pt to increase PO intake. COURT BOATENG
[2020-03-26 12:30] VITALS: BP_SYST 105
--- NOTE | 2020-03-26 14:00 | NUR ---
rounds seen by dr vences. spoke with patient's son and discussed re hospice. pt son stated will talk with the rest of family members and will get in touch.
--- NOTE | 2020-03-26 16:07 | NUR ---
WOUND EVALUATION: Wound Consult received from Dr. Alcazar. Thank you, Dr. Alcazar, for the consult. Patient received in a [place] Bed with an IsoFlex SUSANNE low air-loss mattress, awake, alert, confused. Patient is unable to turn in bed independently. Seun Score is an 11. 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 Recent Labs: WBC 11.4, RBC 3.86, hemoglobin 10.8, hematocrit 32.9, BUN 58, creatinine 1.53, GFR 36, glucose 172, calcium 7.8, alkaline phosphatase 362, albumin 2.1. Microbiology: Blood culture results x2 in progress. MRSA screen results negative. Urine culture results positive for yeast. Intrinsic factors that delay wound healing: Diabetes Mellitus, Hypoalbuminemia. Extrinsic factors that delay wound healing: Decreased mobility. Wound Assessment: 1. Left Proximal Anterior Thigh: Ulceration from severe Intertriginous Dermatitis, present on admission. Site has healed in the middle aspect, now has two separate smaller sites. Wound bed has 70% yellow slough, 10% black slough, 10% brown slough, 10% red tissue. No odor, small yellow purulent drainage. Periwound intact, erythematous. Wound measures 4.5 cm x 8.0 cm. 2. Left Proximal Anterior Thigh, Medial to Site 1: Ulceration from severe Intertriginous Dermatitis, present on admission. Site has healed in the middle aspect, now has two separate smaller sites. Wound bed has 90% yellow slough, 5% black slough, 5% red tissue. No odor, small yellow purulent drainage. Periwound intact, erythematous. Wound measures 2.5 cm x 2.0 cm. 3. Right Proximal Anterior Thigh: Ulceration from severe Intertriginous Dermatitis, present on admission. Wound bed has 60% black eschar, 30% yellow slough, 10% dark red tissue. No odor, small yellow purulent drainage. Periwound intact, erythematous. Wound measures 7.5 cm x 12.8 cm. Recommend: Cleanse wounds with normal saline. Apply Calmoseptine ointment to therese-wounds. Apply SurePrep to surrounding tissue. Apply Venelex ointment to wound beds. Cover with non-adhesive foam dressings. Secure with transparent dressings. Perform wound care daily, and as needed for dressing soiling or dislodgement. 4. Left Posterior Forearm, Inferior to Site 5: Skin tear. Extremity has edema, reddish purple ecchymosis, and patient is on anticoagulants. Skin tear has 95% yellow tissue, 5% red tissue. No odor, scant sanguineous drainage. Therese-wound intact. Surrounding tissue is ecchymotic. Skin tear measures 1.0 cm x 1.0 cm. 5. Left Posterior Forearm, Superior to Site 4: Skin tear. Extremity has edema, reddish purple ecchymosis, and patient is on anticoagulants. Skin tear has 90% yellow tissue, 10% red tissue. No odor, scant sanguineous drainage. Therese-wound intact. Surrounding tissue is ecchymotic. Skin tear measures 3.1 cm x 2.5 cm. 6. Left Lateral Forearm, Inferior to Olecranon: Skin tear. Extremity has edema, reddish purple ecchymosis, and patient is on anticoagulants. Skin tear has 100% red tissue. No odor, scant sanguineous drainage. Therese-wound intact. Surrounding tissue is ecchymotic. Skin tear measures 3.5 cm x 4.0 cm. Recommend: Cleanse wounds with normal saline. Apply SurePrep to therese-wounds. Apply Venelex ointment to skin tear beds. Cover with non-adhesive foam dressings. Wrap with andra wrap. Perform wound care daily, and as needed for dressing soiling or dislodgement. 7. Right Lateral Forearm, Inferior to Site 6: Skin tear. Extremity has edema, reddish purple ecchymosis, and patient is on anticoagulants. Skin tear has 70% yellow tissue, 30% red tissue. No odor, scant sanguineous drainage. Therese-wound intact. Surrounding tissue is ecchymotic. Skin tear measures 0.5 cm x 1.0 cm. 8. Right Lateral Forearm, Distal to Site 5: Skin tear. Extremity has edema, reddish purple ecchymosis, and patient is on anticoagulants. Skin tear has 90% yellow tissue, 10% red tissue. No odor, scant sanguineous drainage. Therese-wound intact. Surrounding tissue is ecchymotic. Skin tear measures 0.3 cm x 0.3 cm. Recommend: Cleanse wounds with normal saline. Apply SurePrep to therese-wounds. Apply Venelex ointment to skin tear beds. Cover with non-adhesive foam dressings. Wrap with andra wrap. Perform wound care daily, and as needed for dressing soiling or dislodgement. 9. Left Therese-Anal area: IAD with MASD. Site has 100% pink tissue. No odor, small sanguineous drainage. Therese-wound macerated. Site measures 0.4 cm x 0.3 cm. Rectal tube is in place. Recommend: Cleanse site with normal saline. Pat dry. Apply Calmoseptine ointment to site. Perform wound care qid, and as needed for soiling. Also recommend: Encourage and assist patient with repositioning side to side only every 2 hours with pillow support and off-load pressure areas with pillows for pressure re-distribution. Offload, elevate and float bilateral heels with pillows. Perform skin care and monitor skin integrity Q shift. Use Calmoseptine ointment on buttocks and other moisture susceptible areas QID and as needed for soiling. Initiate low air-loss therapy.
[2020-03-26 16:14] VITALS: BP_SYST 134
[2020-03-26] MEDS: BALSAM PERU/CASTOR OIL 60 GM OINT...G. TP SCH (16:45)
[2020-03-26] MEDS ORDERED: MENTHOL/ZINC OXIDE 113 GM OINT. TP PRN (17:15)
--- NOTE | 2020-03-26 19:25 | NUR ---
RECEIVED REPORT FROM JOELLE TRACY. Pt. AAOX3, ASKING FOR HELP, Pt W/ UPPER EXTREMITIES WEAKNESS, DIFFICULTY SELF FEEDING, FED REMAINDER OF SOUP, JUICE AND WATER GIVEN. Pt TOLERATED WELL W/O CHOCKING, OR COUGHING HOB UP AT 45 DEGREES. VS DONE WNL. NAD NOTED.
[2020-03-26 20:00] VITALS: BP_SYST 128
--- NOTE | 2020-03-26 21:35 | NUR ---
MED PASS DONE. MEDS CRUSHED, GIVEN W/ APPLESAUCE. Pt W/ C/O PAIN TO GENERALIZED BODY, TYLENOL 325 MG GIVEN FOR PAIN 5/10. REPOSITIONED AND MADE COMFORTABLE. COMFORT CARE -COVERED W/ A WARM BLANKET. NAD NOTED.
[2020-03-26 23:47] VITALS: BP_SYST 94
--- NOTE | 2020-03-26 23:58 | NUR ---
DR ORR CALLED RE: 0730 LABS: POTASSIUM 2.8. REVIEWED CREAT-3.72/ BUN-64 BOTH INCREASED. NEW ORDER GIVEN FOR REPEAT BMP IN AM 0300. REVIEW OF CHART- Pt HAD HD TODAY 5/4-500 ML REMOVED, (LAST HD 5/2-100 ML REMOVED).
[2020-03-27] MEDS: METOCLOPRAMIDE HCL 10 MG/2 ML VIAL IVP SCH (00:52)
[2020-03-27] MEDS: INSULIN REGULAR, HUMAN 100 UNITS/ML, 10 ML VIAL (humuLIN R) SUBCUT PRN (00:58)
--- NOTE | 2020-03-27 01:10 | NUR ---
BS DONE = 222 MG/DL. Pt WHEEZING W/ USE OF ACCESSORY MUSCLES, W/ NOTED SOB. CALL PLACED TO DR GRAY FOR ORDERS.
--- NOTE | 2020-03-27 01:19 | NUR ---
Paged Dr. Cespedes, ammunition officer for Dr. Nation s/w Clare, RN Page spoke to the Doctor.
[2020-03-27] MEDS ORDERED: FUROSEMIDE 40 MG/4 ML VIAL IVP ONE (01:30)
[2020-03-27] MEDS ORDERED: IPRATROPIUM BROM 0.5 MG/2.5 ML VIAL.NEB (ATROVENT) INH ONE (01:30)
[2020-03-27] MEDS ORDERED: IPRATROPIUM BROM 0.5 MG/2.5 ML VIAL.NEB (ATROVENT) INH PRN (01:30)
--- NOTE | 2020-03-27 01:30 | NUR ---
MD CALL BACK- DR RIZVI COVERING FOR ISAAC, NEW ORDERS GIVEN TO STOP IVF 0.9 NS. GIVE LASIX 40MG IVP, DO A RESP TX X1 NOW AND Q 4 H PRN.
--- NOTE | 2020-03-27 01:35 | NUR ---
RESP CALLED BY GENERAL CAR YARD SUPERVISOR FOR STAT RESP TREATMENT. LASIX 40 MG IVP GIVEN PER ORDERS.
--- NOTE | 2020-03-27 01:38 | NUR ---
S/P IV LASIX ADMIN., DURING Pt RE-ASSESSMENT OF PULSE OX, Pt NOTED W/ A STARE, CIRCUMORAL PALLOR NOTED, PT WAS UNRESPONSIVE TO NAME OR SHAKING, RAPID RESPONSE CALLED.
--- NOTE | 2020-03-27 01:39 | NUR ---
PT WITH NO PULSE. CODE FILIPPO CALLED. SEE CODE BLUE DOCUMENTATION TOOL.
--- NOTE | 2020-03-27 02:00 | NUR ---
Pt REPORT GIVEN, TO ICU NSG STAFF AND ER DOCTOR.
--- NOTE | 2020-03-27 02:03 | NUR ---
OPENING NOTE RECEIVED PT FROM [facility] FLOOR CODE BLUE. PT INTUBATED. ETT SIZE 7.0 LIP LINE 22. VENT SETTINGS AC 15, TIDAL VOLUME 450, FiO2 100%, PEEP 5. PT TOLERATING VENT SETTINGS WELL. PT HAS PICC LINE TO RUE AND DIALYSIS CATHETER TO LEFT IJ. PT SINUS TACHYCARDIA ON MONITOR. RADIAL AND PEDAL PULSES WEAK. ABDOMEN FIRM AND DISTENDED. PT HAS PACE CATHETER IN PLACE URINE GRAYSON. PT HAS FLEXI-SEAL IN PLACE. BROWN FORMED STOOL IN BAG. PT HAS MULTIPLE OPEN WOUNDS TO BILATERAL THIGHS. DRESSINGS IN PLACE. BILATERAL UPPER EXTREMITY SKIN TEARS AND ECCHYMOSIS PRESENT. BED LOCKED IN LOWEST POSITION. SAFETY PRECAUTION IN PLACE. WILL CONTINUE MONITOR AT BEDSIDE. CONDITION GUARDED.
--- NOTE | 2020-03-27 02:12 | NUR ---
S/P GIVING REPORT IN ICU. BS RE-ASSESSED= 251 MG/DL, PER ER MD REQUEST. Pt PULSE RE-ASSESSED- NO PULSE, COMPRESSIONS RE-STARTED.
--- NOTE | 2020-03-27 02:20 | NUR ---
LABS DRAWN VIA R UPPER ARM PICC LINE BY REPLANTING MACHINE CREWMAN (MYSELF). CASINO FLOOR RUNNER PRESENT AND TOOK LABS. REPORT RE-ITERATED TO ICU PRIMARY CARE ROBERT DINERO AT BEDSIDE, SBAR SHEET GIVEN. Pt INTUBATED IN ICU CHRISTINE 4.
--- NOTE | 2020-03-27 02:21 | NUR ---
PAGED DR. ALTAMIRANO FOR ORDERS DIALED: [phone] SPOKE TO: ALESSANDRA
[2020-03-27 02:24] VITALS: BP_SYST 118
--- NOTE | 2020-03-27 02:36 | NUR ---
PAGED DR. ALTAMIRANO FOR ORDERS DIALED: [phone] SPOKE TO: DAVID
[2020-03-27 02:45] LABS: CALCIUM 9.6 mg/dL (8.4-11.0); CREATININE 3.38 mg/dL (0.55-1.30); POTASSIUM 3.2 mmol/L (3.5-5.1)
[2020-03-27 03:00] VITALS: BP_SYST 75
--- NOTE | 2020-03-27 03:01 | NUR ---
PAGED DR. ALTAMIRANO FOR ORDERS DIALED: [phone] SPOKE TO: DAVID
[2020-03-27] MEDS ORDERED: NOREPINEPHRINE 4 MG/4 ML VIAL IV ONE (03:09)
--- NOTE | 2020-03-27 03:16 | NUR ---
PAGED DR. LORD FOR ORDERS DIALED: [phone] SPOKE TO: AUTOMATED EXCHANGE
--- NOTE | 2020-03-27 03:23 | NUR ---
PAGED DR. MARTINEZ (DEVELOPMENTAL EDUCATION INSTRUCTOR FOR ) FOR ORDERS DIALED: [phone] SPOKE TO: AUTOMATED EXCHANGE
[2020-03-27] MEDS ORDERED: PHENYLEPHRINE HCL 30 MG in NS 247 ML IV PRN (03:30)
[2020-03-27] MEDS ORDERED: ALBUMIN HUMAN 25% 100 ML IV ONE (03:30)
[2020-03-27] MEDS ORDERED: PHENYLEPHRINE HCL 10 MG/ML VIAL (NEOSYNEPHRINE) ONE ×2 (03:43→03:48)
[2020-03-27] MEDS ORDERED: ALBUMIN HUMAN 25% 50 ML IV ONE (03:43)
[2020-03-27 03:49] VITALS: BP_SYST 90
[2020-03-27 04:00] VITALS: BP_SYST 90
[2020-03-27] MEDS ORDERED: NOREPINEPHRINE BITARTRATE 4 MG in NS 246 ML IV PRN (04:00)
--- NOTE | 2020-03-27 04:05 | NUR ---
MADE SECOND ATTEMPT TO CONTACT SON REGARDING PATIENT CONDITION. FIRST ATTEMPT WAS AT 0220 UNABLE TO LEAVE MESSAGE. INFORMED SON DARYA THAT PATIENT HAS ARRESTED FOUR TIMES AND IS CURRENTLY ON VENTILATOR, TWO VASOPRESSORS. ASKED DARYA IF SHE ARRESTED AGAIN IF HE WANTED US TO CONTINUE LIFE SUPPORT MEASURES. HE STATED THAT WE SHOULD TRY ONE MORE TIME IF NEEDED.
[2020-03-27 04:06] LABS: HEPATITIS A AB, IgM Negative (Negative); HEPATITIS B CORE AB, IgM Negative (Negative); HEPATITIS B SURFACE AG Negative (Negative)
--- NOTE | 2020-03-27 04:20 | NUR ---
PT . ER MD ADAMSON PRONOUNCED PATIENT AT BEDSIDE.
[2020-03-27] MEDS ORDERED: ETOMIDATE 20 MG/ 10 ML VIAL (AMIDATE) IVP ONE (04:27)
--- NOTE | 2020-03-27 04:38 | NUR ---
NOTIFICATION OF PT EXPIRATION ([facility] ON-CALL) NOTIFIED IN PERSON DR. ARDON - ALSO NOTIFIED THROUGH SAME EXCHANGE - ALSO NOTIFIED THROUGH SAME EXCHANGE -DIALED: [phone] -SPOKE TO: MAYTE REYES -DIALED: [phone] -DR. VALENCIA NOTIFIED DIRECTLY -DIALED: [phone] -SPOKE TO:MARIANN
--- NOTE | 2020-03-27 06:30 | NUR ---
RN UPDATE [facility] CONTACTED. NOT ELIGIBLE FOR DONATION. [employer] CONTACTED. NOT A PROOF CLERK'S CASE. FAMILY NOTIFIED. WILL CALL IN AM WITH MORTUARY DETAILS. POST MORTEM CARE PERFORMED. SECURITY OFFICERS CONTACTED TO TRANSPORT PT TO HOLDING AREA.
== END 2020-03-27 04:28 | disposition expired | DRG 432 ==
LOC: SED 05:09 → STU 07:25 → SMU 03-17 11:08 → STU 03-22 09:21 → SIC 03-27 02:05
PROVIDERS: ADMIT Internal Medicine Hospice and Palliative Medicine; ATTEND Internal Medicine Hospice and Palliative Medicine
PROC: 0W9G3ZZ Drainage of Peritoneal Cavity, Percutaneous Approach (ICD-10-PCS; 2020-03-16)
PROC: 02HV33Z Insertion of Infusion Device into Superior Vena Cava, Percutaneous Approach (ICD-10-PCS; 2020-03-22)
PROC: B548ZZA Ultrasonography of Superior Vena Cava, Guidance (ICD-10-PCS; 2020-03-22)
PROC: 05HY33Z Insertion of Infusion Device into Upper Vein, Percutaneous Approach (ICD-10-PCS; principal; 2020-03-24)
PROC: B54NZZA Ultrasonography of Left Upper Extremity Veins, Guidance (ICD-10-PCS; 2020-03-24)
PROC: B54NZZA Ultrasonography of Left Upper Extremity Veins, Guidance (ICD-10-PCS; 2020-03-24)
PROC: 05JYXZZ Inspection of Upper Vein, External Approach (ICD-10-PCS; 2020-03-24)
PROC: 05HY33Z Insertion of Infusion Device into Upper Vein, Percutaneous Approach (ICD-10-PCS; 2020-03-24)
PROC: 5A1D70Z Performance of Urinary Filtration, Intermittent, Less than 6 Hours Per Day (ICD-10-PCS; 2020-03-24)
PROC: 5A1D70Z Performance of Urinary Filtration, Intermittent, Less than 6 Hours Per Day (ICD-10-PCS; 2020-03-26)
PROC: 0BH17EZ Insertion of Endotracheal Airway into Trachea, Via Natural or Artificial Opening (ICD-10-PCS; 2020-03-27)
PROC: 5A1935Z Respiratory Ventilation, Less than 24 Consecutive Hours (ICD-10-PCS; 2020-03-27)
DX: K74.60 Unspecified cirrhosis of liver (principal); N17.0 Acute kidney failure with tubular necrosis; K76.7 Hepatorenal syndrome; L97.129 Non-pressure chronic ulcer of left thigh with unspecified severity; L97.119 Non-pressure chronic ulcer of right thigh with unspecified severity; N18.4 Chronic kidney disease, stage 4 (severe); R18.8 Other ascites; K76.6 Portal hypertension; Z68.42 Body mass index [BMI] 45.0-49.9, adult; L03.115 Cellulitis of right lower limb; T82.524A Displacement of infusion catheter, initial encounter; K75.81 Nonalcoholic steatohepatitis (NASH); K72.90 Hepatic failure, unspecified without coma; K56.41 Fecal impaction; I12.9 Hypertensive chronic kidney disease with stage 1 through stage 4 chronic kidney disease, or unspecified chronic kidney disease; J44.9 Chronic obstructive pulmonary disease, unspecified; E11.22 Type 2 diabetes mellitus with diabetic chronic kidney disease; E66.01 Morbid (severe) obesity due to excess calories; D64.9 Anemia, unspecified; F44.4 Conversion disorder with motor symptom or deficit; Z96.652 Presence of left artificial knee joint; Y84.8 Other medical procedures as the cause of abnormal reaction of the patient, or of later complication, without mention of misadventure at the time of the procedure; Y92.234 Operating room of hospital as the place of occurrence of the external cause; Z90.710 Acquired absence of both cervix and uterus; Z90.49 Acquired absence of other specified parts of digestive tract; Z79.4 Long term (current) use of insulin
CPT/HCPCS: 36415; 36600; 49083; 71045; 74018; 80048; 80053; 80061; 80074; 81000-TC; 81003; 82140-TC; 82803-TC; 82947-TC; 82962; 83605; 83690-TC; 83880; 84157-TC; 85025; 85610-TC; 85730-TC; 87040-TC; 87081; 87086; 89051-TC; 89060-TC; 90935; 90937; 92950; 93005; 94002; 97110-GP; 97112-GP; 99285; C1729; C1751; G0378; J1644; J1815; J1940; J2270; J2354; J2370; J2405; J2765; J3490; J7030; J7050; J7060; P9046